=== PATIENT | female | born 1970 | race Hispanic/Latino ===

== ENCOUNTER 2021-09-01 10:30 | Emergency (ER) | payer BC ==
--- OUTSIDE RECORDS SUMMARY | 2021-09-01 10:32 | XMS REPORT | Continuity of Care Document ---
:1970 Author Organization [facility] t Address [address] [place] [address] Care Team Providers Name Role Phone Nima Medina MD Primary Care Physician Hellen STUART Attending Clinician 2, Lab Attending Clinician Unavailable HELLEN Attending Clinician Unavailable ISABEL Attending Clinician Unavailable ISABEL Admitting Clinician Unavailable Payers Payer Name Policy Type Policy Number Effective Date Expiration Date [place] [id number] 2018 00:00:00 Problems Condition Condition Condition Status Onset Resolution Last Treating Co mments Source Name Details Category Date Date Treatment Clinician Date Morbid Morbid Disease Active Univers obesity obesity 3-17 [place] mass index 00 [place] dical of of Branch 40.0-49.9 40.0-49.9 Allergies, Adverse Reactions, Alerts Allergy Allergy Status Severity Reaction(s) Onset Inactive Treating Comm ents Source Name Type Date Date Clinician NO KNOWN Drug Active Univers ALLERGIE Class ity of [facility] Social History Social Habit Start Date Stop Date Quantity Comments Source Exposure to Not sure University of SARS-CoV-2 (event) [facility] History SDOH University o f Alcohol Std Drinks [facility] History SDOH University o f Alcohol Binge [facility] History SDOH University o f Alcohol Comment [place] [facility] Alcohol intake 2021-04-08 2021-04-08 Ex-drinker University 00:00:00 00:00:00 (finding) [facility] Cigarettes smoked 2019-05-27 2019-05-27 Univers ity of current (pack per 00:00:00 00:00:00 [facility]) - Reported Branch Cigarette 2019-05-27 2019-05-27 University of pack-years 00:00:00 00:00:00 [facility] Tobacco use and 2019-05-27 2019-05-27 Never used Universit y of exposure 00:00:00 00:00:00 [facility] History SDOH 2019-05-27 2019-05-27 1 University o f Alcohol Frequency 00:00:00 00:00:00 [facility] History of tobacco 2012-08-14 Smoker Univer sity of use 00:00:00 [facility] Sex Ass[birth year] At [birth year] Universit y of 00:00:00 00:00:00 [facility] Smoking Status Start Date Stop Date Source Former smoker 2019-05-27 00:00:00 2019-05-27 00:00:00 Universi ty of [facility] Medications Ordered Filled Start Stop Current Ordering Indication Dosage Frequency Signature Comments Components Source Medication Medication Date Date Medication? Clinician (SIG) Name Name metroNIDAZO 2020-09 Yes [id number] 500mg Take 1 Univers LE 500 mg 2-19 tablet by ity o f tablet 00:00: mouth 00 every 12 Medical (twelve) Branch hours. fluconazole 2020-09- Yes [id number] 150mg Take 1 Univers (DIFLUCAN) 2-19 12-20 tablet by ity of 150 mg 00:00: 05:59 [place] tablet [place] :00 now for 1 Medical dose. Branch GLIMEPIRIDE 2020-09 Yes [id number] 2mg TAKE 1 Univers 2 mg tablet 2-08 TABLET BY ity of 00:00: MOUTH [place] 00 DAILY WITH Medical BREAKFAST Branch GLIMEPIRIDE 2020-09 Yes [id number] 2mg TAKE 1 Univers 2 mg tablet 2-08 TABLET BY ity of 00:00: MOUTH [place] 00 DAILY WITH Medical BREAKFAST Branch GLIMEPIRIDE 2020-09 Yes [id number] 2mg TAKE 1 Univers 2 mg tablet 2-08 TABLET BY ity of 00:00: MOUTH [place] 00 DAILY WITH Medical BREAKFAST Branch losartan-hy Yes [id number] 1{tbl} Take 1 Univers drochloroth 7-30 tablet by ity of iazide 00:00: mouth [place] 100-25 mg 00 daily. Medical per tablet Branch levothyroxi 2020-0 Yes [id number] 25ug Take 1 Univers ne 25 mcg 7-30 tablet by ity o f tablet 00:00: mouth [place] 00 every Medical morning. Branch atorvastati 2020-0 Yes [id number] 20mg Take 1 Univers n 20 mg 7-30 tablet by ity of tablet 00:00: mouth [place] 00 daily. Medical Branch empaglifloz 2020-0 Yes [id number] 10mg Take 1 Univers in 7-30 tablet by ity of (JARDIANCE) 00:00: mouth [place] 00 daily. Medical Branch losartan-hy 2020-0 Yes [id number] 1{tbl} Take 1 Univers drochloroth 7-30 tablet by ity of iazide 00:00: mouth [place] 100-25 mg 00 daily. Medical per tablet Branch levothyroxi 2020-0 Yes [id number] 25ug Take 1 Univers ne 25 mcg 7-30 tablet by ity o f tablet 00:00: mouth [place] 00 every Medical morning. Branch atorvastati 2020-0 Yes [id number] 20mg Take 1 Univers n 20 mg 7-30 tablet by ity of tablet 00:00: mouth [place] 00 daily. Medical Branch empaglifloz 2020-0 Yes [id number] 10mg Take 1 Univers in 7-30 tablet by ity of (JARDIANCE) 00:00: mouth [place] 00 daily. Medical Branch losartan-hy 2020-0 Yes [id number] 1{tbl} Take 1 Univers drochloroth 7-30 tablet by ity of iazide 00:00: mouth [place] 100-25 mg 00 daily. Medical per tablet Branch levothyroxi 2020-0 Yes [id number] 25ug Take 1 Univers ne 25 mcg 7-30 tablet by ity o f tablet 00:00: mouth [place] 00 every Medical morning. Branch atorvastati 2020-0 Yes [id number] 20mg Take 1 Univers n 20 mg 7-30 tablet by ity of tablet 00:00: mouth [place] 00 daily. Medical Branch empaglifloz 2020-0 Yes [id number] 10mg Take 1 Univers in 7-30 tablet by ity of (JARDIANCE) 00:00: mouth [place] 00 daily. Medical Branch METFORMIN 2020-0 Yes [id number] 500mg TAKE 1 Univers ER 500 mg 4-08 TABLET BY ity o f 24 hr 00:00: MOUTH [place] tablet 00 DAILY WITH Medical BREAKFAST Branch METFORMIN 2020-0 Yes [id number] 500mg TAKE 1 Univers ER 500 mg 4-08 TABLET BY ity o f 24 hr 00:00: MOUTH [place] tablet 00 DAILY WITH Medical BREAKFAST Branch METFORMIN 2020-0 Yes [id number] 500mg TAKE 1 Univers ER 500 mg 4-08 TABLET BY ity o f 24 hr 00:00: MOUTH [place] tablet 00 DAILY WITH [facility] Branch aspirin 81 2018- Yes 81mg Take 81 mg U nivers mg EC 2-23 by mouth ity of tablet 10:18: daily. [address] aspirin 81 2018- Yes 81mg Take 81 mg U nivers mg EC 2-23 by mouth ity of tablet 10:18: daily. [address] aspirin 81 2018- Yes 81mg Take 81 mg U nivers mg EC 2-23 by mouth ity of tablet 10:18: daily. [address] Immunizations Ordered Filled Immunization Date Status Comments [facility] e Immunization Name Name SARS-COV-2 COVID-19 2020-12-21 Completed Unive rsity of MODERNA VACCINE 00:00:00 [facility] SARS-COV-2 COVID-19 2020-12-21 Completed Unive rsity of MODERNA VACCINE 00:00:00 [facility] SARS-COV-2 COVID-19 2020-12-21 Completed Unive rsity of MODERNA VACCINE 00:00:00 [facility] SARS-COV-2 COVID-19 2020-11-23 Completed Unive rsity of MODERNA VACCINE 00:00:00 [facility] SARS-COV-2 COVID-19 2020-11-23 Completed Unive rsity of MODERNA VACCINE 00:00:00 [facility] SARS-COV-2 COVID-19 2020-11-23 Completed Unive rsity of MODERNA VACCINE 00:00:00 [facility] TDAP 2017-01-08 Completed University 00:00:00 [facility] TDAP 2017-01-08 Completed [facility] 00:00:00 [facility] TDAP 2017-01-08 Completed [facility] 00:00:00 [facility] Vital Signs Vital Name Observation Time Observation Value Comments Source Systolic blood 2021-08-25 15:54:00 125 mm[Hg] Univer sity of pressure [facility] Diastolic blood 2021-08-25 15:54:00 82 mm[Hg] Unive rsity of pressure [facility] Heart rate 2021-08-25 15:51:00 68 /min [facility] Body temperature 2021-08-25 15:51:00 36.72 Kari [facility] Respiratory rate 2021-08-25 15:51:00 18 /min [facility] Body height 2021-08-25 15:51:00 157.5 cm [facility] Body weight 2021-08-25 15:51:00 101.606 kg [facility] BMI 2021-08-25 15:51:00 40.97 kg/m2 [facility] Procedures This patient has no known procedures. 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 [facility] [id number] [facility] 10:30:00 10:45:00 Visit Linda Stephens [id number] ity [place] [id number] [place] [facility] [id number] [facility] [address] BU[facility]ING 2021-08-25 2021-08-25 Office Hellen [facility] [id number] Univers 09:45:00 10:16:35 Visit Linda MUKHERJEE [id number] i ty of [place] [id number] [place] n[place]ole PROFJOSSELYNIO [id number] [address] 2021-08-25 2021-08-25 Outpatient Janett STEPHENS [facility] [id number] [facility] 09:45:00 10:16:35 LINDA rae [facility] 2019-02-04 2019-02-04 Outpatient TURNER_FA [facility] [id number] 06:44:00 06:44:00 [address] [facility] Results This patient has no known results.
[2021-09-01] MEDS ORDERED: Ringers Lactate 1,000 ML IV ONE (10:57)
--- NOTE | 2021-09-01 11:36 | EDPHYS ---
Physician Documentation [facility] Name: Mae Ashraf Age: 51 yrs Sex: Female : 1970 Arrival Date: 09/01/2021 Time: 10:35 Bed 6 Private MD: ED Physician Modesto Darling HPI: 09/01 10:55 This 51 yrs old Female presents to ER via Ambulatory with complaints of jr8 Covid+/Dehydrated. 10:55 Onset: The symptoms/episode began/occurred gradually. Associated signs and symptoms: jr8 The patient has no apparent associated signs or symptoms. The patient has not experienced similar symptoms in the past. The patient has not recently seen a physician. Is a 51-year-old female that presented to the emergency room with complaints of dehydration secondary to Covid. Patient stated that overall she has improved since symptom onset this past week but feels that even though she is drinking fluids cannot keep up with it as she is on 2 diuretics and is diabetic.. Historical: - Allergies: 10:53 No Known Allergies; jh5 - PMHx: 10:53 Diabetes mellitus; Hypertensive disorder; [facility] - Immunization history:: Adult Immunizations up to date. - Social history:: Smoking status: Patient denies any tobacco usage or history of. ROS: 10:55 Eyes: Negative for injury, pain, redness, and discharge, ENT: Negative for injury, jr8 pain, and discharge, Neck: Negative for injury, pain, and swelling, Cardiovascular: Negative for chest pain, palpitations, and edema, Respiratory: Negative for shortness of breath, cough, wheezing, and pleuritic chest pain, Abdomen/GI: Negative for abdominal pain, nausea, vomiting, diarrhea, and constipation, Back: Negative for injury and pain, MS/Extremity: Negative for injury and deformity, Skin: Negative for injury, rash, and discoloration, Neuro: Negative for headache, weakness, numbness, tingling, and seizure. 10:55 Constitutional: Positive for fatigue. Exam: 10:55 Constitutional: This is a well developed, well nourished patient who is awake, alert, jr8 and in no acute distress. ENT: Nares patent. No nasal discharge, no septal abnormalities noted. Tympanic membranes are normal and external auditory canals are clear. Oropharynx with no redness, swelling, or masses, exudates, or evidence of obstruction, uvula midline. Mucous membranes moist. Cardiovascular: Regular rate and rhythm with a normal S1 and S2. No gallops, murmurs, or rubs. Normal PMI, no JVD. No pulse deficits. Respiratory: Lungs have equal breath sounds bilaterally, clear to auscultation and percussion. No rales, rhonchi or wheezes noted. No increased work of breathing, no retractions or nasal flaring. Abdomen/GI: Soft, non-tender, with normal bowel sounds. No distension or tympany. No guarding or rebound. No evidence of tenderness throughout. Skin: Warm, dry with decreased turgor. Normal color with no rashes, no lesions, and no evidence of cellulitis. MS/ Extremity: Pulses equal, no cyanosis. Neurovascular intact. Full, normal range of motion. Neuro: Awake and alert, GCS 15, oriented to person, place, time, and situation. Cranial nerves II-XII grossly intact. Motor strength 5/5 in all extremities. Sensory grossly intact. Vital Signs: 10:52 BP 135 / 82; Pulse 71; Resp 20; Temp 97.1; Pulse Ox 99% ; Weight 99.79 kg; Height 5 ft. jh5 3 in. (160.02 cm); 10:52 Body Mass Index 38.97 (99.79 kg, 160.02 cm) [facility] MDM: 10:44 Patient medically screened. [facility] 10:55 Data reviewed: vital signs, nurses notes, and as a result, I will discharge patient. [facility] Data interpreted: Pulse oximetry: on room air is 99 %. Interpretation: normal. Counseling: I had a detailed discussion with the patient and/or guardian regarding: the historical points, exam findings, and any diagnostic results supporting the discharge/admit diagnosis, the need for outpatient follow up, a family practitioner, to return to the emergency department if symptoms worsen or persist or if there are any questions or concerns that arise at home. 09/01 10:55 Order name: IV; Complete Time: 11:02 [facility] Administered Medications: 11:02 Drug: Ringers - Lactated Ringers Solution 1000 ml Route: IV; Rate: bolus; Site: right [facility] antecubital; Disposition: 17:04 Co-signature as Attending Physician, Modesto Darling MD I agree with the assessment and kdr plan of care. Disposition Summary: 09/01/21 11:35 Discharge Ordered Location: Home jr8 Problem: new jr8 Symptoms: have improved jr8 Condition: Stable jr8 Diagnosis - Dehydration jr8 Followup: jr8 - With: Private Physician - When: 2 - 3 days - Reason: Recheck today's complaints, Continuance of care, Re-evaluation by your physician Discharge Instructions: - Discharge Summary Sheet jr8 - Dehydration, Adult jr8 Forms: - Medication Reconciliation Form jr8 - Thank You Letter jr8 - Antibiotic Education jr8 - Prescription Opioid Use jr8 Signatures: Modesto Darling MD MD kdr Roszak, Josh, PA PA jr8 Jennifer Georges RN RN jh5
--- NOTE | 2021-09-01 11:36 | ER ---
Nurse's Notes [facility] Name: Mae Ashraf Age: 51 yrs Sex: Female : 1970 Arrival Date: 09/01/2021 Time: 10:35 Bed 6 Private MD: Diagnosis: Dehydration Presentation: 09/01 10:52 Chief complaint: Patient states: tested COVID+ SUNDAY. Feeling weak, but better than jh5 2 days ago. Endorses nausea and diarrhea. denies vomiting. Coronavirus screen: Vaccine status: Patient reports receiving the 2nd dose of the covid vaccine. Client denies travel out of the [place] in the last 14 days. Client presents with at least one sign or symptom that may indicate coronavirus-19. Standard/surgical mask placed on the client. Provider contacted for isolation considerations. Ebola Screen: Patient negative for fever greater than or equal to 101.5 degrees Fahrenheit, and additional compatible Ebola Virus Disease symptoms Patient denies exposure to infectious person. Patient denies travel to an Ebola-affected area in the 21 days before illness onset. Initial Sepsis Screen: Does the patient meet any 2 criteria? No. Patient's initial sepsis screen is negative. Does the patient have a suspected source of infection? No. Patient's initial sepsis screen is negative. Risk Assessment: Do you want to hurt yourself or someone else? Patient reports no desire to harm self or others. Onset of symptoms was August 29, 2021. 10:52 Method Of Arrival: Ambulatory [facility] 10:52 Acuity: VLADIMIR 4 jh5 Triage Assessment: 10:54 General: Appears in no apparent distress. comfortable, obese, well groomed, well jh5 developed, Behavior is calm, cooperative, appropriate for age. Pain: Denies pain. Respiratory: Reports shortness of breath Onset: The symptoms/episode began/occurred gradually, the patient has mild shortness of breath. Historical: - Allergies: 10:53 No Known Allergies; 5 - PMHx: 10:53 Diabetes mellitus; Hypertensive disorder; [facility] - Immunization history:: Adult Immunizations up to date. - Social history:: Smoking status: Patient denies any tobacco usage or history of. Screenin:54 Abuse screen: Denies threats or abuse. Denies injuries from another. Nutritional [facility] screening: No deficits noted. Tuberculosis screening: No symptoms or risk factors identified. Fall Risk None identified. Assessment: 10:54 Cardiovascular: Rhythm is regular. Respiratory: Airway is patent Respiratory effort is jh5 even, unlabored, Breath sounds are clear. Vital Signs: 10:52 BP 135 / 82; Pulse 71; Resp 20; Temp 97.1; Pulse Ox 99% ; Weight 99.79 kg; Height 5 ft. jh5 3 in. (160.02 cm); 10:52 Body Mass Index 38.97 (99.79 kg, 160.02 cm) [facility] ED Course: 10:35 Patient arrived in ED. mr 10:44 Gilbert Lambert PA is PHCP. [facility] 10:44 Modesto Darling MD is Attending Physician. [facility] 10:45 Jennifer Georges, GUY is Primary Nurse. [facility] 10:53 Triage completed. [facility] 10:55 Arm band placed on right wrist. [facility] 10:55 Patient has correct armband on for positive identification. Bed in low position. Call [facility] light in reach. Side rails up X 1. 11:14 No provider procedures requiring assistance completed. [facility] Administered Medications: 11:02 Drug: Ringers - Lactated Ringers Solution 1000 ml Route: IV; Rate: bolus; Site: right [facility] antecubital; Outcome: 11:35 Discharge ordered by . [facility] 12:04 Patient left the ED. [facility] Signatures: Kelsi Lai mr OrquidealitGilbert PA PA 8 Jennifer Georges, RN RN [facility]
[2021-09-01 12:09] VITALS: BP 135/82; TEMP 97.1; O2SAT 99
== END 2021-09-01 12:04 | disposition home or self-care (01) ==
LOC: ER 10:30
DX: E86.0 Dehydration (principal); Z86.16 Personal history of COVID-19; E11.9 Type 2 diabetes mellitus without complications; I10 Essential (primary) hypertension
CPT/HCPCS: 96374; 99282; J7120

== ENCOUNTER 2022-04-20 00:35 | Emergency (ER) | payer BC ==
--- OUTSIDE RECORDS SUMMARY | 2022-04-20 00:39 | XMS REPORT | Continuity of Care Document ---
:1970 Author Organization [facility] t Address [address] [place] [address] Care Team Providers Name Role Phone Yang Medina MD Primary Care Physician [phone] HETAL Attending Clinician Unavailable Linda Stephens PA-C Attending Clinician Yang Medina MD Attending Clinician YANG MEDINA Attending Clinician Unavailable Pob, [facility] Main Attending Clinician Unavailable LINDA STEPHENS Attending Clinician Unavailable ISABEL Attending Clinician Unavailable HETAL Admitting Clinician Unavailable ISABEL Admitting Clinician Unavailable Payers Payer Name Policy Type Policy Number Effective Date Expiration Date S [place] [id number] 2018 00:00:00 Problems Condition Condition Condition Status [...] Active Univers [employer]ER[employer] Class ity of [facility] [place] [facility] Social History Social Habit Start Date Stop Date Quantity Comments Source History [facility] University o f Alcohol Std Drinks [place] [facility] History [facility] University o f Alcohol [facility]inge [place] [facility] History [facility] University o f Alcohol Comment [facility] ical Branch Exposure to Not sure University of SARS-CoV-2 (event) [facility] Alcohol intake 2021-12-22 2021-12-22 Ex-drinker University of 00:00:00 00:00:00 (finding) [facility] Cigarettes smoked 2019-05-27 2019-05-27 Univers ity of current (pack per 00:00:00 00:00:00 [facility] ) - Reported Branch Cigarette 2019-05-27 2019-05-27 University of pack-years 00:00:00 00:00:[address] [facility] Tobacco use and 2019-05-27 2019-05-27 Smokeless Universit y of exposure 00:00:00 00:00:00 tobacco non-user [facility] dical [place] History SDOH 2019-05-27 2019-05-27 1 University o f Alcohol Frequency 00:00:00 00:00:00 [facility] History of tobacco 2012-08-14 Cigarette Smoker University of use 00:00:[address] [facility] Sex [birth year] At [birth year] Universit y of 00:00:00 00:00:[address] [facility] Smoking Status Start Date Stop Date Source Ex-smoker 2019-05-27 00:00:00 2019-05-27 00:00:00 [facility] Medications Ordered Filled Start Stop Current Ordering Indication Dosage Frequency Signature Comments Components Source Medication Medication Date Date Medication? Clinician (SIG) Name Name valACYclovi Yes [id number] 1g Take 1 Univers r (VALTREX) 7-19 tablet by ity of 1 gram 00:00: mouth in [place] tablet 00 the Medical morning Branch and 1 tablet in the evening. METFORMIN Yes [id number] 500mg TAKE 1 Univers ER 500 mg 6-17 TABLET BY ity o f 24 hr 00:00: MOUTH [place] tablet 00 DAILY WITH Medical BREAKFAST Branch METFORMIN Yes [id number] 500mg TAKE 1 Univers ER 500 mg 6-17 TABLET BY ity o f 24 hr 00:00: MOUTH [place] tablet 00 DAILY WITH Medical BREAKFAST Branch METFORMIN Yes [id number] 500mg TAKE 1 Univers ER 500 mg 6-17 TABLET BY ity o f 24 hr 00:00: MOUTH [place] tablet 00 DAILY WITH Medical BREAKFAST Branch valACYclovi Yes [id number] 1g Take 1 Univers r (VALTREX) 4-14 tablet by ity of 1 gram 00:00: mouth 2 [place] tablet 00 (two) Medical times Branch daily. valACYclovi Yes [id number] 1g Take 1 Univers r (VALTREX) 4-14 tablet by ity of 1 gram 00:00: mouth 2 [place] tablet 00 (two) Medical times Branch daily. valACYclovi Yes [id number] 1g Take 1 Univers r (VALTREX) 4-14 tablet by ity of 1 gram 00:00: mouth 2 [place] tablet 00 (two) Medical times Branch daily. valACYclovi Yes [id number] 1g Take 1 Univers r (VALTREX) 4-14 tablet by ity of 1 gram 00:00: mouth 2 [place] tablet 00 (two) Medical times Branch daily. valACYclovi Yes [id number] 1g Take 1 Univers r (VALTREX) 4-14 tablet by ity of 1 gram 00:00: mouth 2 [place] tablet 00 (two) Medical times Branch daily. valACYclovi 2021- No [id number] 1g Take 1 Univers r (VALTREX) 4-14 07-07 tablet by it y of 1 gram 00:00: 00:00 mouth 2 [place] tablet 00 :00 (two) Medical times Branch daily. valACYclovi 2021- No [id number] 1g Take 1 Univers r (VALTREX) 4-14 07-07 tablet by it y of 1 gram 00:00: 00:00 mouth 2 [place] tablet 00 :00 (two) Medical times Branch daily. metroNIDAZO 0 Yes [id number] 500mg Take 1 Univers LE 500 mg 4-05 tablet by ity o f tablet 00:00: mouth [place] 00 every 12 Medical (twelve) Branch hours. metroNIDAZO 2021-0 Yes [id number] 500mg Take 1 Univers LE 500 mg 4-05 tablet by ity o f tablet 00:00: mouth [place] 00 every 12 Medical (twelve) Branch hours. metroNIDAZO 2021-0 Yes [id number] 500mg Take 1 Univers LE 500 mg 4-05 tablet by ity o f tablet 00:00: mouth [place] 00 every 12 Medical (twelve) Branch hours. metroNIDAZO 2021-0 Yes [id number] 500mg Take 1 Univers LE 500 mg 4-05 tablet by ity o f tablet 00:00: mouth [place] 00 every 12 Medical (twelve) Branch hours. metroNIDAZO 0 Yes [id number] 500mg Take 1 Univers LE 500 mg 4-05 tablet by ity o f tablet 00:00: mouth [place] 00 every 12 Medical (twelve) Branch hours. metroNIDAZO 0 Yes [id number] 500mg Take 1 Univers LE 500 mg 4-05 tablet by ity o f tablet 00:00: mouth [place] 00 every 12 Medical (twelve) Branch hours. metroNIDAZO 0 Yes [id number] 500mg Take 1 Univers LE 500 mg 4-05 tablet by ity o f tablet 00:00: mouth [place] 00 every 12 Medical (twelve) Branch hours. GLIMEPIRIDE 2020-09 Yes [id number] 2mg TAKE 1 Univers 2 mg tablet 2-08 TABLET BY ity of 00:00: MOUTH [place] 00 DAILY WITH Medical BREAKFAST Branch GLIMEPIRIDE 2020-09 Yes [id number] 2mg TAKE 1 Univers 2 mg tablet 2-08 TABLET BY ity of 00:00: MOUTH [place] 00 DAILY WITH Medical BREAKFAST Branch GLIMEPIRIDE 2020-09 Yes [id number] 2mg TAKE 1 Univers 2 mg tablet 2-08 TABLET BY ity of 00:00: MOUTH [place] 00 DAILY WITH Medical BREAKFAST Branch GLIMEPIRIDE 2020-09 Yes [id number] 2mg TAKE 1 Univers 2 mg tablet 2-08 TABLET BY ity of 00:00: MOUTH [place] 00 DAILY WITH Medical BREAKFAST Branch GLIMEPIRIDE 2020- Yes [id number] 2mg TAKE 1 Univers 2 mg tablet 2-08 TABLET BY ity of 00:00: MOUTH [place] 00 DAILY WITH Medical BREAKFAST Branch GLIMEPIRIDE 2020- Yes [id number] 2mg TAKE 1 Univers 2 mg tablet 2-08 TABLET BY ity of 00:00: MOUTH [place] 00 DAILY WITH Medical BREAKFAST Branch GLIMEPIRIDE 2020- Yes [id number] 2mg TAKE 1 Univers 2 mg tablet 2-08 TABLET BY ity of 00:00: MOUTH [place] 00 DAILY WITH Medical BREAKFAST Branch atorvastati 0 Yes [id number] 20mg Take 1 Univers n 20 mg 7-30 tablet by ity of tablet 00:00: mouth [place] 00 daily. Medical Branch empaglifloz 2020-0 Yes [id number] 10mg Take 1 Univers in 7-30 tablet by ity of (JARDIANCE) 00:00: mouth [place] 00 daily. Medical Branch losartan-hy 2020-0 Yes [id number] 1{tbl} Take 1 Univers drochloroth 7-30 tablet by ity of iazide 00:00: mouth [place] 100-25 mg 00 daily. Medical per tablet Branch levothyroxi 2020-0 Yes [id number] 25ug Take 1 Univers ne 25 mcg 7-30 tablet by ity o f tablet 00:00: mouth [place] 00 every Medical morning. Branch atorvastati 0 Yes [id number] 20mg Take 1 Univers n 20 mg 7-30 tablet by ity of tablet 00:00: mouth [place] 00 daily. Medical Branch empaglifloz 0 Yes [id number] 10mg Take 1 Univers in 7-30 tablet by ity of (JARDIANCE) 00:00: mouth [place] 00 daily. Medical Branch losartan-hy 0 Yes [id number] 1{tbl} Take 1 Univers drochloroth 7-30 tablet by ity of iazide 00:00: mouth [place] 100-25 mg 00 daily. Medical per tablet Branch levothyroxi 2020-0 Yes [id number] 25ug Take 1 Univers ne 25 mcg 7-30 tablet by ity o f tablet 00:00: mouth [place] 00 every Medical morning. Branch atorvastati 2020-0 Yes [id number] 20mg Take 1 Univers n 20 mg 7-30 tablet by ity of tablet 00:00: mouth [place] 00 daily. Medical Branch empaglifloz 0 Yes [id number] 10mg Take 1 Univers in 7-30 tablet by ity of (JARDIANCE) 00:00: mouth [place] 00 daily. Medical Branch losartan-hy 2020-0 Yes [id number] 1{tbl} Take 1 Univers drochloroth 7-30 tablet by ity of iazide 00:00: mouth [place] 100-25 mg 00 daily. Medical per tablet Branch levothyroxi 2020-0 Yes [id number] 25ug Take 1 Univers ne 25 mcg 7-30 tablet by ity o f tablet 00:00: mouth [place] 00 every Medical morning. Branch atorvastati 2021-0 Yes [id number] 20mg Take 1 Univers n 20 mg 7-30 tablet by ity of tablet 00:00: mouth [place] 00 daily. Medical Branch empaglifloz 0 Yes [id number] 10mg Take 1 Univers in 7-30 tablet by ity of (JARDIANCE) 00:00: mouth [place] 00 daily. Medical Branch losartan-hy 2020-0 Yes [id number] 1{tbl} Take 1 Univers drochloroth 7-30 tablet by ity of iazide 00:00: mouth [place] 100-25 mg 00 daily. Medical per tablet Branch levothyroxi 2020-0 Yes [id number] 25ug Take 1 Univers ne 25 mcg 7-30 tablet by ity o f tablet 00:00: mouth [place] 00 every Medical morning. Branch atorvastati Yes [id number] 20mg Take 1 Univers n 20 mg 7-30 tablet by ity of tablet 00:00: mouth [place] 00 daily. Medical Branch empaglifloz Yes [id number] 10mg Take 1 Univers in 7-30 tablet by ity of (JARDIANCE) 00:00: mouth [place] 00 daily. Medical Branch losartan-hy Yes [id number] 1{tbl} Take 1 Univers drochloroth 7-30 tablet by ity of iazide 00:00: mouth [place] 100-25 mg 00 daily. Medical per tablet Branch levothyroxi 2020-0 Yes [id number] 25ug Take 1 Univers ne 25 mcg 7-30 tablet by ity o f tablet 00:00: mouth [place] 00 every Medical morning. Branch atorvastati 0 Yes [id number] 20mg Take 1 Univers n 20 mg 7-30 tablet by ity of tablet 00:00: mouth [place] 00 daily. Medical Branch empaglifloz 0 Yes [id number] 10mg Take 1 Univers in 7-30 tablet by ity of (JARDIANCE) 00:00: mouth [place] 00 daily. Medical Branch losartan-hy 2020-0 Yes [id number] 1{tbl} Take 1 Univers drochloroth 7-30 tablet by ity of iazide 00:00: mouth [place] 100-25 mg 00 daily. Medical per tablet Branch levothyroxi 2020-0 Yes [id number] 25ug Take 1 Univers ne 25 mcg 7-30 tablet by ity o f tablet 00:00: mouth [place] 00 every Medical morning. Branch atorvastati Yes [id number] 20mg Take 1 Univers n 20 mg 7-30 tablet by ity of tablet 00:00: mouth [place] 00 daily. Medical Branch empaglifloz Yes [id number] 10mg Take 1 Univers in 7-30 tablet by ity of (JARDIANCE) 00:00: mouth [place] 00 daily. Medical Branch losartan-hy Yes [id number] 1{tbl} Take 1 Univers drochloroth 7-30 tablet by ity of iazide 00:00: mouth [place] 100-25 mg 00 daily. Medical per tablet Branch levothyroxi Yes [id number] 25ug Take 1 Univers ne 25 mcg 7-30 tablet by ity o f tablet 00:00: mouth [place] 00 every Medical morning. Branch METFORMIN Yes [id number] 500mg TAKE 1 Univers ER 500 mg 4-08 TABLET BY ity o f 24 hr 00:00: MOUTH [place] tablet 00 DAILY WITH Medical BREAKFAST Branch METFORMIN Yes [id number] 500mg TAKE 1 Univers ER 500 mg 4-08 TABLET BY ity o f 24 hr 00:00: MOUTH [place] tablet 00 DAILY WITH Medical BREAKFAST Branch METFORMIN Yes [id number] 500mg TAKE 1 Univers ER 500 mg 4-08 TABLET BY ity o f 24 hr 00:00: MOUTH [place] tablet 00 DAILY WITH Medical BREAKFAST Branch METFORMIN 0 Yes [id number] 500mg TAKE 1 Univers ER 500 mg 4-08 TABLET BY ity o f 24 hr 00:00: MOUTH [place] tablet 00 DAILY WITH Medical BREAKFAST Branch METFORMIN 2020-0 2021- No [id number] 500mg TAKE 1 Univers ER 500 mg 4-08 06-17 TABLET BY ity of 24 hr 00:00: 00:00 MOUTH [place] tablet 00 :00 DAILY WITH Medical BREAKFAST Branch aspirin 81 2018-09 Yes 81mg Take 81 mg U nivers mg EC 2-23 by mouth ity of tablet 10:18: daily. [address] aspirin 81 2018-09 Yes 81mg Take 81 mg U nivers mg EC 2-23 by mouth ity of tablet 10:18: daily. [address] aspirin 81 2018-09 Yes 81mg Take 81 mg U nivers mg EC 2-23 by mouth ity of tablet 10:18: daily. [address] aspirin 81 2018- Yes 81mg Take 81 mg U nivers mg EC 2-23 by mouth ity of tablet 10:18: daily. [address] aspirin 81 2019- Yes 81mg Take 81 mg U nivers mg EC 2-23 by mouth ity of tablet 10:18: daily. [address] aspirin 81 2018- Yes 81mg Take 81 mg U nivers mg EC 2-23 by mouth ity of tablet 10:18: daily. [address] aspirin 81 2019- Yes 81mg Take 81 mg U nivers mg EC 2-23 by mouth ity of tablet 10:18: daily. [address] Immunizations Ordered Filled Immunization Date Status Comments [facility] e Immunization Name Name SARS-COV-2 COVID-19 2020-12-21 Completed Unive rsity of MODERNA VACCINE 00:00:00 [facility] SARS-COV-2 COVID-19 2020-12-21 Completed Unive rsity of MODERNA VACCINE 00:00:00 [facility] SARS-COV-2 COVID-19 2020-12-21 Completed Unive rsity of MODERNA VACCINE 00:00:00 [facility] SARS-COV-2 COVID-19 2020-12-21 Completed Unive rsity of MODERNA VACCINE 00:00:00 [facility] SARS-COV-2 COVID-19 2020-12-21 Completed Unive rsity of MODERNA VACCINE 00:00:00 [facility] SARS-COV-2 COVID-19 2020-12-21 Completed Unive rsity of MODERNA VACCINE 00:00:00 [facility] SARS-COV-2 COVID-19 2020-12-21 Completed Unive rsity of MODERNA VACCINE 00:00:00 [facility] SARS-COV-2 COVID-19 2020-11-23 Completed Unive rsity of MODERNA VACCINE 00:00:00 [facility] SARS-COV-2 COVID-19 2020-11-23 Completed Unive rsity of MODERNA VACCINE 00:00:00 [facility] SARS-COV-2 COVID-19 2020-11-23 Completed Unive rsity of MODERNA VACCINE 00:00:00 [facility] SARS-COV-2 COVID-19 2020-11-23 Completed Unive rsity of MODERNA VACCINE 00:00:00 [facility] SARS-COV-2 COVID-19 2020-11-23 Completed Unive rsity of MODERNA VACCINE 00:00:00 [facility] SARS-COV-2 COVID-19 2020-11-23 Completed Unive rsity of MODERNA VACCINE 00:00:00 [facility] SARS-COV-2 COVID-19 2020-11-23 Completed Unive rsity of MODERNA VACCINE 00:00:00 [facility] TDAP 2017-01-08 Completed University of 00:00:[address] [facility] TDAP 2017-01-08 Completed University of 00:00:[address] [facility] TDAP 2017-01-08 Completed University of 00:00:[address] [facility] TDAP 2017-01-08 Completed University of 00:00:[address] [facility] TDAP 2017-01-08 Completed University of 00:00:[address] [facility] TDAP 2017-01-08 Completed University of 00:00:[address] [facility] TDAP 2017-01-08 Completed University of 00:00:[address] [facility] Vital Signs Vital Name Observation Time Observation Value Comments Source Systolic blood 2021-12-22 21:12:00 155 mm[Hg] Univer sity of pressure [facility] Diastolic blood 2021-12-22 21:12:00 92 mm[Hg] Unive rsity of pressure [facility] Heart rate 2021-12-22 21:11:00 86 /min [facility] Body temperature 2021-12-22 21:11:00 37.39 [facility] 2021-12-22 21:11:00 18 /min [facility] Body height 2021-12-22 21:11:00 160 cm [facility] Body weight 2021-12-22 21:11:00 100.426 kg [facility] BMI 2021-12-22 21:11:00 39.22 kg/m2 [facility] Procedures This patient has no known procedures. Encounters Start End Encounter Admission Attending Care Care Encounter Source Date/Time Date/Time Type Type Clinicians Facility Department ID 2022-03-27 2022-03-27 Outpatient AMBREEN_JOE [facility] [id number] 11:54:00 11:54:00 [facility]ER [id number] [facility] [id number] Univers 00:00:00 00:00:00 Linda MUKHERJEE [id number] i ty [facility] [id number] [id number] [address] 2022-03-14 2022-03-14 [facility] [id number] Univers 00:00:00 00:00:00 Linda MUKHERJEE [id number] i ty of [facility] [id number] [id number] [address] 2022-02-24 2022-02-24 [facility] [id number] Univers 00:00:00 00:00:00 Yang OLIVA [id number] it y of [place] MUKHERJEE [id number] [place] DORIS?BLEA [id number] [address] 2022-02-21 2022-02-21 Outpatient Janett MEDINA [facility] [id number]-20 Univers 15:30:00 15:30:00 YANG [id number] ity of [facility] 2021-12-26 2021-12-[address] [facility] [id number] Univers 00:00:00 00:00:00 Linda PORTILLO [id number] it y of [place] [id number] [place] [id number] [address] 2021-12-22 2021-12-22 Travel Sales Consultant Saurabh, Dmitri Lab Main [facility] [id number] Univers 17:00:00 17:15:00 Visit Linda Stephens [id number] ity [facility] [id number] [id number] Nj dical NAL 353 [facility] 2021-12-22 2021-12-22 Office Hellen [facility] [id number] [facility] 16:15:00 16:30:47 Visit Linda MUKHERJEE [id number] i ty [facility] [id number] [id number] Nj dical NAL 134 [facility] 2021-12-22 2021-12-22 Outpatient R HELLEN [facility] [id number] [facility] 16:15:00 16:30:47 LINDA rae [facility] 2019-02-04 2019-02-04 Outpatient TURNER_FA [facility] [id number] [place] 06:44:00 06:44:00 [facility] Results This patient has no known results.
[2022-04-20] MEDS ORDERED: ONDANSETRON 4 MG/2 ML VIAL ONE ×2 (01:08→03:03)
[2022-04-20] MEDS ORDERED: MORPHINE 4 MG/ML SYR ONE ×2 (01:08→03:03)
[2022-04-20 01:30] LABS: Protime INR 1.16
[2022-04-20 01:33] LABS: Hematocrit 43.1 % (36.0-45.0); MCV 82.1 fL (80-100); MPV 7.6 fL (7.6-11.3); RBC Red Blood Cell Count 5.25 M/uL (3.86-4.86)
[2022-04-20 01:48] LABS: Albumin 3.8 g/dL (3.4-5.0); Bilirubin Direct 0.2 mg/dL (0-0.2); Bilirubin Total 0.6 mg/dL (0.2-1.0); Potassium 2.9 mmol/L (3.5-5.1); Protein, Total 9.4 g/dL (6.4-8.2); Troponin High Sensitivity 3.9 pg/mL (<58.9)
[2022-04-20 02:00] LABS: Urine Blood Trace-intact (Negative); Urine Glucose 3+ (Negative); Urine Protein Negative (Negative); Urine Specific Gravity 1.015 (1.005-1.030); Urine pH 7.5 (5.0-7.0)
[2022-04-20] MEDS ORDERED: KCL 20 MEQ/100 mL IVPB 100 ML IV ONE (02:51)
[2022-04-20] MEDS ORDERED: POTASSIUM 25 MEQ EFFERV TAB ONE (02:51)
[2022-04-20] MEDS ORDERED: NS KCL 20MEQ 1,000 ML IV ONE (02:51)
--- NOTE | 2022-04-20 05:45 | EDPHYS ---
Physician Documentation [facility] Name: Mae Ashraf Age: 52 yrs Sex: Female : 1970 Arrival Date: 04/20/2022 Time: 00:37 Bed 7 Private MD: AKILA Physician Mariano Ibarra HPI: 04/20 02:39 This 52 yrs old Female presents to ER via Ambulatory with complaints of yassine Abdominal Pain, Nausea/Vomiting. 02:39 The patient presents to the emergency department with nausea, vomiting, that is yassine intermittent, abdominal pain, of the right upper quadrant, left upper quadrant, right lower quadrant and left lower quadrant. Onset: The symptoms/episode began/occurred 1 week(s) ago. Possible causes: unknown. The symptoms are aggravated by nothing. The symptoms are alleviated by nothing. Associated signs and symptoms: The patient has no apparent associated signs or symptoms. Severity of symptoms: At their worst the symptoms were mild in the emergency department the symptoms are unchanged. The patient has not experienced similar symptoms in the past. 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 - Social history:: Smoking status: Patient denies any tobacco usage or history of. - Family history:: not pertinent. ROS: 02:39 Constitutional: Negative for fever, chills, and weight loss, Eyes: Negative for injury, yassine pain, redness, and discharge, ENT: Negative for injury, pain, and discharge, Neck: Negative for injury, pain, and swelling, Cardiovascular: Negative for chest pain, palpitations, and edema, Respiratory: Negative for shortness of breath, cough, wheezing, and pleuritic chest pain, Back: Negative for injury and pain, : Negative for injury, bleeding, discharge, and swelling, MS/Extremity: Negative for injury and deformity, Skin: Negative for injury, rash, and discoloration, Neuro: Negative for headache, weakness, numbness, tingling, and seizure, Psych: Negative for depression, anxiety, suicide ideation, homicidal ideation, and hallucinations, Allergy/Immunology: Negative for hives, rash, and allergies, Endocrine: Negative for neck swelling, polydipsia, polyuria, polyphagia, and marked weight changes, Hematologic/Lymphatic: Negative for swollen nodes, abnormal bleeding, and unusual bruising. 02:39 Abdomen/GI: Positive for abdominal pain, constipation. Exam: 02:39 Constitutional: This is a well developed, well nourished patient who is awake, alert, yassine and in no acute distress. Head/Face: Normocephalic, atraumatic. Eyes: Pupils equal round and reactive to light, extra-ocular motions intact. Lids and lashes normal. Conjunctiva and sclera are non-icteric and not injected. Cornea within normal limits. Periorbital areas with no swelling, redness, or edema. ENT: Nares patent. No nasal discharge, no septal abnormalities noted. Tympanic membranes are normal and external auditory canals are clear. Oropharynx with no redness, swelling, or masses, exudates, or evidence of obstruction, uvula midline. Mucous membranes moist. Neck: Trachea midline, no thyromegaly or masses palpated, and no cervical lymphadenopathy. Supple, full range of motion without nuchal rigidity, or vertebral point tenderness. No Meningismus. Chest/axilla: Normal chest wall appearance and motion. Nontender with no deformity. No lesions are appreciated. Cardiovascular: Regular rate and rhythm with a normal S1 and S2. No gallops, murmurs, or rubs. Normal PMI, no JVD. No pulse deficits. Respiratory: Lungs have equal breath sounds bilaterally, clear to auscultation and percussion. No rales, rhonchi or wheezes noted. No increased work of breathing, no retractions or nasal flaring. Back: No spinal tenderness. No costovertebral tenderness. Full range of motion. Female : Normal external genitalia. Skin: Warm, dry with normal turgor. Normal color with no rashes, no lesions, and no evidence of cellulitis. MS/ Extremity: Pulses equal, no cyanosis. Neurovascular intact. Full, normal range of motion. Neuro: Awake and alert, GCS 15, oriented to person, place, time, and situation. Cranial nerves II-XII grossly intact. Motor strength 5/5 in all extremities. Sensory grossly intact. Cerebellar exam normal. Normal gait. Psych: Awake, alert, with orientation to person, place and time. Behavior, mood, and affect are within normal limits. 02:39 ECG was reviewed by the Attending Physician. 02:39 Abdomen/GI: Inspection: distension, that is mild, Bowel sounds: normal, Palpation: mild abdominal tenderness, in all quadrants, Liver: no appreciated palpable abnormalities, Hernia: not appreciated. Vital Signs: 00:46 BP 138 / 93; Pulse 87; Resp 18 S; Temp 96.5(TE); Pulse Ox 100% on R/A; Weight 88.45 kg bb (R); Height 5 ft. 3 in. (160.02 cm) (R); Pain 10/10; 06:07 BP 128 / 63; Pulse 78; Resp 18; Pulse Ox 99% on R/A; Pain 6/10; kl 00:46 Body Mass Index 34.54 (88.45 kg, 160.02 cm) bb MDM: 00:57 Patient medically screened. [facility] 02:43 Differential diagnosis: Nonspecific abd pain, gastritis, cholecystitis, pancreatitis, yassine appendicitis, diverticulitis, viral gastroenteritis, gastroenteritis. Data reviewed: vital signs, nurses notes, lab test result(s), EKG, radiologic studies, CT scan. Data interpreted: varnish maker: rate is 87 beats/min, rhythm is regular, Pulse oximetry: on room air is 100 %. Test interpretation: by ED physician or midlevel provider: ECG, plain radiologic studies. Counseling: I had a detailed discussion with the patient and/or guardian regarding: the historical points, exam findings, and any diagnostic results supporting the discharge/admit diagnosis, lab results, radiology results. 04/20 00:56 Order name: Basic Metabolic Panel; Complete Time: 02:11 04/20 00:56 Order name: CBC with Diff; Complete Time: :40 04/20 00:56 Order name: LFT's; Complete Time: 02:04/20 00:56 Order name: Magnesium; Complete Time: 02:04/20 00:56 Order name: NT PRO-BNP; Complete Time: 02:04/20 00:56 Order name: PT-INR; Complete Time: 01:40 04/20 00:56 Order name: Troponin HS; Complete Time: 02:11 /11 00:56 Order name: XRAY Chest (1 view) [facility] 04/20 00:56 Order name: Lipase; Complete Time: 02:11 [facility] 04/20 00:57 Order name: CT Abd/Pelvis - PO and IV Contrast [facility] 04/20 02:01 Order name: Urine Dipstick-Ancillary; Complete Time: 02:11 EDMS 04/20 00:56 Order name: EKG; Complete Time: 00:58 [facility] 04/20 00:56 Order name: Cardiac monitoring; Complete Time: 00:58 [facility] 04/20 00:56 Order name: EKG - Nurse/Tech; Complete Time: 01:56 [facility] 04/20 00:56 Order name: IV Saline Lock; Complete Time: 00:58 [facility] 04/20 00:56 Order name: Labs collected and sent; Complete Time: 00:58 [facility] 04/20 00:56 Order name: O2 Per Protocol; Complete Time: 00:58 [facility] 04/20 00:56 Order name: O2 Sat Monitoring; Complete Time: 00:58 [facility] 04/20 00:56 Order name: Urine Dipstick-Ancillary (obtain specimen); Complete Time: 01:55 [facility] EC:39 Rate is 89 beats/min. Rhythm is regular. QRS [place] is Normal. ND interval is normal. QRS yassine interval is normal. QT interval is normal. No Q waves. T waves are Normal. No ST changes noted. Clinical impression: Normal ECG and No evidence of ischemia. Administered Medications: 01:06 Drug: Zofran (Ondansetron) 4 mg Route: IVP; Site: right antecubital; kd3 01:07 Drug: NS 0.9% 1000 ml Route: IV; Rate: 1 bolus; Site: right antecubital; kd3 01:07 Drug: morphine 4 mg Route: IVP; Infused Over: 4 mins; Site: right antecubital; kd3 02:57 Drug: Potassium Chloride 20 mEq Route: IV; Rate: per protocol; Site: right antecubital; bb 02:57 Drug: Potassium Effervescent Tablet 50 mEq Route: PO; bb 02:57 Drug: NS 0.9% with KCl 20 mEq/L 1000 ml Route: IV; Rate: 250 ml/hr; Site: right bb antecubital; 06:04 Follow up: IV Status: Order to discontinue infusion; IV Intake: 700ml kl 05:49 Not Given (Duplicate Order): Potassium Effervescent Tablet 25 mEq PO once; dissolve in bb 4 ounces of water or juice 06:04 Drug: Lactulose 60 grams Volume: 45 ml; Route: PO; kl 06:04 Drug: Dulcolax (bisacodyl) Suppository 10 mg Route: ND; Disposition Summary: 04/20/22 05:44 Discharge Ordered Location: Home [facility] Problem: new yassine Symptoms: have improved yassine Condition: Stable yassine Diagnosis - Vomiting yassine - Constipation yassine - Hypokalemia yassine - Abdominal pain, Generalized yassine Followup: yassine - With: Private Physician - When: 2 - 3 days - Reason: Recheck today's complaints, Continuance of care, Re-evaluation by your physician Discharge Instructions: - Discharge Summary Sheet yassine - Abdominal Pain, Adult yassine - Potassium Content of Foods yassine - Abdominal Pain, Adult, [id number] yassine - Hypokalemia yassine - Vomiting, Adult yassine Forms: - Medication Reconciliation Form [facility] - Thank You Letter [facility] - Antibiotic Education [facility] - Prescription Opioid Use [facility] Prescriptions: - Dulcolax (bisacodyl) 10 mg Rectal suppository - insert 1 suppository by RECTAL route every 12 hours; 14 suppository; Refills: [facility] 0, Product Selection Permitted - Pepcid 20 mg Oral Tablet - take 1 tablet by ORAL route every 12 hours for 10 days; 20 tablet; Refills: 0, [facility] Product Selection Permitted - Zofran 4 mg Oral Tablet - take 1 tablet by ORAL route every 12 hours As needed; 20 tablet; Refills: 0, [facility] Product Selection Permitted - Lactulose 10 gram/15 mL Oral Solution - take 30 milliliters by ORAL route once daily; 300 milliliter; Refills: 0, [facility] Product Selection Permitted - dicyclomine 20 mg Oral Tablet - take 1 tablet by ORAL route 4 times per day; 28 tablet; Refills: 0, Product [facility] Selection Permitted Signatures: Dispatcher [employer] Radha Shaffer RN RN kl Anderson, Corey, MD MD cha Ballard, Brenda, RN RN Darya Leonardo RN RN kd3 Maricarmen Shi PA PA sb3 Corrections: (The following items were deleted from the chart) 00:49 00:47 PMHx: diabetes mellitus; bb bb 00:49 00:47 PMHx: Hypertensive disorder; 01:30 00:58 Abdomen Pelvis W Con+CT.RAD.BRZ ordered. EDMS EDMS
--- NOTE | 2022-04-20 05:45 | ER ---
Nurse's Notes [facility] Name: Mae Ashraf Age: 52 yrs Sex: Female : 1970 Arrival Date: 04/20/2022 Time: 00:37 Bed 7 Private MD: Diagnosis: Vomiting;Constipation;Hypokalemia;Abdominal pain, Generalized Presentation: 04/20 00:46 Chief complaint: Patient states: she has had abdominal pain for 2 days no BM x 1 week bb and started vomiting tonight. Coronavirus screen: At this time, the client does not indicate any symptoms associated with coronavirus-19. Ebola Screen: No symptoms or risks identified at this time. Initial Sepsis Screen: Does the patient meet any 2 criteria? No. Patient's initial sepsis screen is negative. Does the patient have a suspected source of infection? No. Patient's initial sepsis screen is negative. Risk Assessment: Do you want to hurt yourself or someone else? Patient reports no desire to harm self or others. Onset of symptoms was April 19, 2022. 00:46 Method Of Arrival: Ambulatory bb 00:46 Acuity: VLADIMIR 3 bb 00:59 Note Pt report taking phenteramine and has lost 27 pounds since February. 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 - Social history:: Smoking status: Patient denies any tobacco usage or history of. - Family history:: not pertinent. Screenin:00 Abuse screen: Denies threats or abuse. Nutritional screening: No deficits noted. Tuberculosis screening: No symptoms or risk factors identified. Fall Risk None identified. Assessment: 00:57 General: Appears uncomfortable, well groomed, well developed, Behavior is calm, kl cooperative. Pain: Complains of pain in right upper quadrant and left upper quadrant Pain currently is 10 out of 10 on a pain scale. Quality of pain is described as aching, crampy, Noted to be grimacing, guarding. Neuro: No deficits noted. Scanlon Agitation-Sedation Scale (RASS): 0 - Alert and Calm. Cardiovascular: No deficits noted. Respiratory: No deficits noted. Airway is patent Trachea midline Respiratory effort is even, unlabored. GI: Bowel sounds hypoactive in right lower quadrant and left lower quadrant. GI: Abdomen is tender to palpation X 4 quads. Reports vomiting, x 2 30 minutes VP DELIVERY. : No deficits noted. No signs and/or symptoms were reported regarding the genitourinary system. EENT: No deficits noted. No signs and/or symptoms were reported regarding the EENT system. Derm: No deficits noted. No signs and/or symptoms reported regarding the dermatologic system. Musculoskeletal: No deficits noted. No signs and/or symptoms reported regarding the musculoskeletal system. Vital Signs: 00:46 BP 138 / 93; Pulse 87; Resp 18 S; Temp 96.5(TE); Pulse Ox 100% on R/A; Weight 88.45 kg bb (R); Height 5 ft. 3 in. (160.02 cm) (R); Pain 10/10; 06:07 BP 128 / 63; Pulse 78; Resp 18; Pulse Ox 99% on R/A; Pain 6/10; kl 00:46 Body Mass Index 34.54 (88.45 kg, 160.02 cm) bb ED Course: 00:37 Patient arrived in ED. bp1 00:47 Triage completed. bb 00:47 Arm band placed on Patient placed in an exam room, on a stretcher, on pulse oximetry. bb 00:50 Darya Nielsen RN is Primary Nurse. kd3 00:53 Mariano Ibarra MD is Attending Physician. yassine 01:00 Inserted saline lock: 20 gauge in right antecubital area, using aseptic technique. kl 01:38 XRAY Chest (1 view) In Process Unspecified. EDMS 01:48 Notified ED physician of a critical lab result(s). potassium of 2.9 Dr Fred arriaga notified. 04:11 CT Abd/Pelvis - PO and IV Contrast In Process Unspecified. EDMS 05:30 No apparent distress. Resting quietly. kl 06:06 IV discontinued, intact, bleeding controlled, No redness/swelling at site. Pressure kl dressing applied. 06:08 Patient has correct armband on for positive identification. kl 06:08 No provider procedures requiring assistance completed. kl Administered Medications: 01:06 Drug: Zofran (Ondansetron) 4 mg Route: IVP; Site: right antecubital; kd3 01:07 Drug: NS 0.9% 1000 ml Route: IV; Rate: 1 bolus; Site: right antecubital; kd3 01:07 Drug: morphine 4 mg Route: IVP; Infused Over: 4 mins; Site: right antecubital; kd3 02:57 Drug: Potassium Chloride 20 mEq Route: IV; Rate: per protocol; Site: right antecubital; bb 02:57 Drug: Potassium Effervescent Tablet 50 mEq Route: PO; bb 02:57 Drug: NS 0.9% with KCl 20 mEq/L 1000 ml Route: IV; Rate: 250 ml/hr; Site: right bb antecubital; 06:04 Follow up: IV Status: Order to discontinue infusion; IV Intake: 700ml kl 05:49 Not Given (Duplicate Order): Potassium Effervescent Tablet 25 mEq PO once; dissolve in bb 4 ounces of water or juice 06:04 Drug: Lactulose 60 grams Volume: 45 ml; Route: PO; kl 06:04 Drug: Dulcolax (bisacodyl) Suppository 10 mg Route: ME; Medication: 06:08 VIS not applicable for this client. kl Intake: 06:04 IV: 700ml; Total: 700ml. Outcome: 05:44 Discharge ordered by . yassine 06:07 Discharged to home ambulatory. 06:07 Condition: stable 06:07 Discharge instructions given to patient, Instructed on discharge instructions, follow up and referral plans. medication usage, Demonstrated understanding of instructions, follow-up care, medications, Prescriptions given X 4. 06:08 Patient left the ED. Signatures: Dispatcher [employer] EDMS Radha Moulton RN RN kl Anderson, Corey, MD MD cha Ballard, Brenda RN RN Nimo Rodriguez Kyli, RN RN kd3 Corrections: (The following items were deleted from the chart) 00:49 00:47 PMHx: diabetes mellitus; corina arriaga 00:49 00:47 PMHx: Hypertensive disorder; corina arriaga
[2022-04-20] MEDS ORDERED: LACTULOSE 20 GM/30 ML UCUP ONE (06:01)
[2022-04-20] MEDS ORDERED: BISACODYL 10 MG RECTAL SUPP ONE (06:01)
[2022-04-20 06:20] VITALS: TEMP 96.5
[2022-04-20 06:23] VITALS: BP 128/63; O2SAT 99
--- NOTE | 2022-04-20 14:31 | EKG ---
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
--- NOTE | 2022-04-20 17:05 | RAD REPORT ---
EXAM DESCRIPTION: RAD - Chest Single View - 04/20/2022 1:36 am CLINICAL HISTORY: The patient is 52 years old and is Female; ABDOMINAL DISTENTION TECHNIQUE: Frontal view of the chest. COMPARISON: No relevant prior studies available. FINDINGS: Lungs: Unremarkable. No consolidation. Pleural space: Unremarkable. No pneumothorax. Heart: Unremarkable. Mediastinum: Unremarkable. Bones/joints: Unremarkable. IMPRESSION: No acute findings in the chest. Electronically signed by: Frankie Martinez MD 04/20/2022 1:50 AM CDT Due to temporary technical issues with the PACS/Fluency reporting system, reports are being signed by the in house radiologists without review as a courtesy to insure prompt reporting. The interpreting radiologist is fully responsible for the content of the report.
--- NOTE | 2022-04-20 17:14 | RAD REPORT ---
EXAM DESCRIPTION: CT - Abdomen Pelvis W Contrast - 04/20/2022 5:51 am CLINICAL HISTORY: The patient is 52 years old and is Female; Abdominal pain, acute, nonlocalized TECHNIQUE: Axial computed tomography images of the abdomen and pelvis with intravenous contrast. S agittal and coronal reformatted images were created and reviewed. This CT exam was performed using one or more of the following dose reduction techniques: automated exposure control, adjustment of t he mA and/or kV according to patient size, and/or use of iterative reconstruction technique. Oral c ontrast was administered. COMPARISON: No relevant prior studies available. FINDINGS: Lung bases: Unremarkable. No mass. No consolidation. ABDOMEN: Liver: Unremarkable. No mass. Gallbladder and bile ducts: Cholecystectomy without biliary dilatation. Pancreas: No findings to suggest acute pancreatitis. No mass visualized. No ductal dilation. Spleen: Unremarkable. No splenomegaly. Adrenals: Unremarkable. No mass. Kidneys and ureters: Unremarkable. No solid mass. No hydronephrosis. Stomach and bowel: Moderate rectosigmoid stool with mildly distended right and transverse colon, with air-fluid level. No findings to suggest colitis. No small bowel dilatation or bowel wall thickening. No gastric wall thickening. PELVIS: Appendix: The visualized appendix is normal. No pericecal inflammation to suggest acute appendici tis. Bladder: Unremarkable. No mass. Reproductive: Retroflexed uterus. Fluid in the vaginal fornices. No adnexal mass. ABDOMEN and PELVIS: Intraperitoneal space: Unremarkable. No free air. No significant fluid collection. Bones/joints: L4-5 degenerative facet arthropathy. No acute fracture. No dislocation. Soft tissues: Unremarkable. Vasculature: Unremarkable. No abdominal aortic aneurysm. Lymph nodes: No pathologically enlarged lymph nodes. IMPRESSION: Moderate rectosigmoid stool with mildly distended right and transverse colon, with air-f luid level. No findings to suggest colitis. Electronically signed by: Collette Boateng MD 04/20/2022 4:29 AM CDT Due to temporary technical issues with the PACS/Fluency reporting system, reports are being signed by the in house radiologists without review as a courtesy to insure prompt reporting. The interpreting radiologist is fully responsible for the content of the report.
== END 2022-04-20 06:08 | disposition home or self-care (01) ==
LOC: ER 00:35
DX: E87.6 Hypokalemia (principal); R10.84 Generalized abdominal pain; K59.00 Constipation, unspecified
CPT/HCPCS: 96361; 93005; 85025; 80048; 36415; 83735; 85610; 80076; 81003; 84484; 83690; 83880; 74177; 71045; 96375; 96374; 99284; Q9967; J3480 ×2; J2405 ×2

== ENCOUNTER 2024-02-21 07:38 | Observation (INO) | payer BC ==
[2024-02-15 11:29] LABS: Absolute Basophils 0.1 K/uL (0-0.5); Absolute Eosinophils 0.1 K/uL (0-0.5); Absolute Lymphocytes (CBC) 1.9 K/uL (0.7-4.9); Absolute Monocytes 0.4 K/uL (0.1-1.3); Absolute Neutrophil 3.4 K/uL (1.8-8.0); Basophils % 0.9 % (0-1.3); Hematocrit 42.7 % (36.0-45.0); Hemoglobin 14.1 g/dL (12.0-15.0); Lymphocytes % 32.2 % (15.3-44.8); MCH 28.9 pg (27.0-35.0); MCHC 32.9 g/dL (32.0-36.0); MCV 87.8 fL (80-100); MPV 8.1 fL (7.6-11.3); Monocytes % 6.4 % (3.3-12.3); Neutrophils % 58.5 % (41.7-73.7); Platelets 257 thou/uL (152-406); RBC Red Blood Cell Count 4.87 M/uL (3.86-4.86)
[2024-02-15 11:34] LABS: Specific Gravity 1.017 (1.005-1.030); Urine Bilirubin NEGATIVE (Negative); Urine Blood Negative (Negative); Urine Clarity Clear (Clear); Urine Color Colorless (Yellow); Urine Glucose NEGATIVE (Negative); Urine Ketones NEGATIVE (Negative); Urine Microscopic Reflex YN NO UMIC; Urine Nitrite NEGATIVE (Negative); Urine Protein NEGATIVE (Negative); Urine Urobilinogen Normal (Normal); Urine pH 6.5 (5.0-7.0)
[2024-02-15 11:35] LABS: PT Prothrombin Time 10.7 SECONDS (9.5-12.5); PTT, Activated Partial Thromb 37.6 SECONDS (24.3-36.9); Protime INR 0.97
[2024-02-15 11:43] LABS: Anion Gap 5.9 mEq/L (5.0-15.0); Potassium 3.9 mEq/L (3.5-5.1)
--- NOTE | 2024-02-16 11:42 | EKG ---
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
[2024-02-21] MEDS: SCOPOLAMINE HYDROBROMIDE PATCH TD ONE (08:21)
[2024-02-21] MEDS: Ringers Lactate 1,000 ML IV ONE ×2 (08:30→11:10)
[2024-02-21] MEDS ORDERED: FENTANYL CITR 100 MCG/2 ML ONE (10:05)
[2024-02-21] MEDS ORDERED: KETOROLAC 30 MG/ML INJ ONE (10:05)
[2024-02-21] MEDS ORDERED: dexAMETHasone 10 MG/ML VIAL ONE (10:05)
[2024-02-21] MEDS ORDERED: LIDOCAINE 2% MPF 5 ML VIAL ONE (10:05)
[2024-02-21] MEDS ORDERED: ROCURONIUM 50 MG/5 ML VIAL IV ONE (10:05)
[2024-02-21] MEDS ORDERED: ONDANSETRON 4 MG/2 ML VIAL ONE (10:05)
[2024-02-21] MEDS ORDERED: MIDAZOLAM HCL 2 MG/2 ML INJ ONE (10:05)
[2024-02-21] MEDS ORDERED: propofoL 200 MG/20 ML VIAL IV ONE (10:05)
[2024-02-21] MEDS ORDERED: LANO/MINERAL OIL/PETRO 3.5 GM ONE (10:11)
[2024-02-21] MEDS: CEFAZOLIN SODIUM 2 GM/VIAL ONE (10:23)
[2024-02-21] MEDS: BUPIVACAINE 0.25% PF 30 ML VIAL ONE (10:35)
[2024-02-21] MEDS: LIDOCAINE HCL/EPINEPHRINE 20 ML MDV ONE (11:18)
[2024-02-21] MEDS ORDERED: VECURONIUM 10 MG/VIAL IV ONE (11:19)
[2024-02-21] MEDS ORDERED: NS 0.9% VIAL 10 ML ONE (11:20)
[2024-02-21] MEDS ORDERED: GLYCOPYRROLATE 0.2 MG/ML SYR ONE (11:27)
[2024-02-21] MEDS ORDERED: LIDOCAINE HCL/EPINEPHRINE 20 ML MDV ONE (13:08)
[2024-02-21] MEDS ORDERED: HYDROMORPHONE HCL 1 MG/ML INJ ONE (13:56)
[2024-02-21] MEDS ORDERED: Mastisol Adhesive Liq ONE (14:13)
[2024-02-21] MEDS ORDERED: MORPHINE 2 MG/ML SYR IV PRN (14:23)
[2024-02-21] MEDS ORDERED: ONDANSETRON 4 MG/2 ML VIAL IV PRN (14:23)
[2024-02-21] MEDS ORDERED: PROMETHAZINE INJ 25 MG/ML AMP IV PRN (14:23)
--- NOTE | 2024-02-21 14:29 | P.BOP ---
Preoperative diagnosis: pelvic floor prolapse, SWAPNIL, AUB Postoperative diagnosis: same, enterocele, perineocele Primary procedure: TLH BSO, USLS colpopexy, modified ya's culdoplasty, cysto Secondary procedure: post wall, perineocele repairs, TVT-O cysto Concrete Sculptor: Yvonne Marquez Estimated blood loss: 100 Specimen: uterus and bilateral tubes and ovaries Findings: post wall/perineocele significant,0/0/+1/6/thin/9/0/+1/-4,cysto patent UOs Anesthesia: General Complications: None Drain(s): Urinary catheter Implants: TVT-O Transferred to: Recovery Room Condition: Good
[2024-02-21] MEDS: HYDROMORPHONE HCL 1 MG/ML INJ ONE ×2 (15:00→15:20)
--- OUTSIDE RECORDS SUMMARY | 2024-02-21 15:20 | XMS REPORT | Continuity of Care Document ---
Author Name Unknown Address [address] [facility] [address] [place] [address] [facility] thconnect Address [address] [facility] [address] [place] [address] Care Team Providers Care Foreign Language Professor Name Role Phone YANG SWEENEY Primary Care Physician Jordyn vailaJASSI Torres Attending Clinician Unavailable DEANN DUMAS Attending Clinician UnavailDeann Valentine MD Attending Clinician [phone] Lab, [facility] Attending Clinician Unavailable GC_GCBZW_Kaeliasa_S Attending Clinician UnavailMARIE Kohler Attending Clinician Unavailable Yang Sweeney MD Attending Clinician [phone]- [phone] HETAL Attending Clinician Unavailable Linda Stephens PA-C Attending Clinician [phone] Pob, [facility] Main Attending Clinician UnavailLINDA Johnson Attending Clinician Unavailable COLTON LOWERY Attending Clinician Unavailable 2, [facility] Attending Clinician Unavailable Nurse, [facility] Attending Clinician Un available YANG SWEENEY Attending Clinician David garcia Pcp, Patient Does Not Have A Attending Clinician Bakari Garcia MD Attending Clinician [phone] BAKARI GARCIA Attending Clinician Unavailable Doctor Unassigned, [place] Attending Clinician Rickie Singh DO Attending Clinician [phone] ISABEL Attending Clinician Unavailable DEANN DUMAS Admitting Clinician Unavailjose juan barahona GC_GCBZW_Kadiemir_S Admitting Clinician Unavaila ble HUYENREEN_FARHANA Admitting Clinician Unavailable TURNER_FA Admitting Clinician Unavailable Payers Payer Name Policy Type Policy Number Effective Date Expirati on Date Source [employer] [facility] [place] [id number] 2018 00:00:[place] [id number] 2018 00:00:[place] [id number] 2018 00:00:00 Problems Condition Name Condition Details Condition Category Status Onset Date Resolution Date Last Treatment Date Treating Clinician Comments Source Incomplete uterovagin al prolapse Incomplete Uterovagin al Prolapse Problem Active 01-01 00:00: 00 [facility] Atrophy of skeletal muscle of pelvis Atrophy of Skeletal Muscle of Pelvis Problem Active 01-01 00:00: 00 [facility] Female stress incontinen ce Female Stress Incontinen ce Problem Active 01-01 00:00: 00 [facility] Atrophic vaginitis Atrophic Vaginitis Problem Active 01-01 00:00: 00 [facility] Urge incontinen ce of urine Urge Incontinen ce of Urine Problem Active 01-01 00:00: 00 [facility] Hypothyroi dism Hypothyroi dism Problem Active 01-01 00:00: 00 [facility] Diabetes mellitus Diabetes Mellitus Problem Active 01-01 00:00: 00 [facility] Deep pain on intercours e Deep Pain on Intercours e Problem Active 01-01 00:00: 00 [facility] Hypertensi ve disorder Hypertensi ve Disorder Problem Active 01-01 00:00: 00 [facility] Morbid obesity with body mass index of 40.0-49.9 Morbid obesity with body mass index of 40.0-49.9 Disease Active 3-17 00:00: 00 [facility] acute hospital Allergies, Adverse Reactions, Alerts Allergy Name Allergy Type Status Severity Reaction(s) Onset Date Inactive Date Treating Clinician Comments Source NO KNOWN ALLERGIE S Drug Class Active General acute hospital Social History Social Habit Start Date Stop Date Quantity Comments Source [facility] History SDOH Alcohol Std Drinks [facility] History SDOH Alcohol Binge [facility] History SDOH Alcohol Comment [facility] Cigarettes smoked current (pack per day) - Reported 2024-01-01 00:00:00 2024-01-01 00:00:00 [facility] Cigarette pack-years 2024-01-01 00:00:00 2024-01-01 00:00:00 [facility] Tobacco use and exposure 2024-01-01 00:00:00 2024-01-01 00:00:00 Smokeless tobacco non-user [facility] Alcohol intake 2024-01-01 00:00:00 2024-01-01 00:00:00 Ex-drinker (finding) [facility] Exposure to SARS-CoV-2 (event) 2021-11-21 00:00:00 2021-12-21 13:01:00 Not sure [facility] History of Social function 2020-04-11 00:00:00 2020-04-11 00:00:00 [facility] History SDOH Alcohol Frequency 2019-05-27 00:00:00 2019-05-27 00:00:00 1 [facility] History of tobacco use 2012-08-14 00:00:00 Cigarette Smoker [facility] Sex Assigned At 1970 00:00:00 1970 00:00:00 [facility] Smoking Status Start Date Stop Date Source Never Smoker [facility] Ex-smoker 2024-01-01 00:00:00 2024-01-01 [facility] Ordered Medication Name Filled Medication Name Start Date Stop Date Current Medication? Ordering Clinician Indication Dosage Frequency Signature (SIG) Comments Components Source iopamidol (ISOVUE 370-500 mL) injection 80 mL 01-01 20:00: 00 01-01 18:00 :00 No [id number] 80mL 80 mL, Intravenou s, ONCE, 1 dose, On Sun01/02/24 at 1515, Routine [facility] diatrizoate carina-diatriz oat sod (GASTROGRAF IN) 66-10 % oral solution 30 mL 01-01 18:30: 00 01-01 18:30 :00 No [id number] 30mL 30 mL, Oral, ONCE, 1 dose, On Sun01/02/24 at 1330, Routine [facility] acute hospital terbinafine HCL 1 % cream 12-31 00:00: 00 Yes [id number] Apply to area(s) 2 (two) times daily. [facility] acute hospital valACYclovi r (VALTREX) 1 gram tablet 03-28 00:00: 00 Yes [id number] 1g Take 1 tablet by mouth in the morning and 1 tablet in the evening. [facility] acute hospital METFORMIN ER 500 mg 24 hr tablet 02-24 00:00: 00 Yes [id number] 500mg TAKE 1 TABLET BY MOUTH DAILY WITH BREAKFAST General acute hospital valACYclovi r (VALTREX) 1 gram tablet 14 00:00: 00 03-16 00:00 :00 No [id number] 1g Take 1 tablet by mouth 2 (two) times daily. [facility] acute hospital metroNIDAZO LE 500 mg tablet 12-13 00:00: 00 Yes [id number] 500mg Take 1 tablet by mouth every 12 (twelve) hours. [facility] acute hospital GLIMEPIRIDE 2 mg tablet 2020-09 00:00: 00 Yes [id number] 2mg TAKE 1 TABLET BY MOUTH DAILY WITH BREAKFAST General acute hospital atorvastati n 20 mg tablet 04-08 00:00: 00 Yes [id number] 20mg Take 1 tablet by mouth daily. [facility] acute hospital empaglifloz in (JARDIANCE) 04-08 00:00: 00 Yes [id number] 10mg Take 1 tablet by mouth daily. [facility] acute hospital losartan-hy drochloroth iazide 100-25 mg per tablet 04-08 00:00: 00 Yes [id number] 1{tbl} Take 1 tablet by mouth daily. [facility] acute hospital levothyroxi ne 25 mcg tablet 04-08 00:00: 00 Yes [id number] 25ug Take 1 tablet by mouth every morning. [facility] acute hospital metroNIDAZO LE (FLAGYL) 500 mg tablet 03-09 00:00: 00 03-18 00:00 :00 No Take 4 tablets by mouth for 1 dose. [facility] acute hospital LOSARTAN 100 mg tablet 03-08 00:00: 00 04-08 00:00 :00 No [id number] 100mg TAKE 1 TABLET BY MOUTH DAILY [facility] acute hospital benzonatate 200 mg capsule 03-07 00:00: 00 04-08 00:00 :00 No [id number] 200mg Take 1 capsule by mouth 3 (three) times daily as needed for Cough. General acute hospital azithromyci n 500 mg tablet 03-07 00:00: 00 03-18 00:00 :00 No [id number] 500mg Take 1 tablet by mouth daily. General acute hospital METFORMIN ER 500 mg 24 hr tablet 12-16 00:00: 00 02-24 00:00 :00 No [id number] 500mg TAKE 1 TABLET BY MOUTH DAILY WITH BREAKFAST General acute hospital GLIMEPIRIDE 2 mg tablet 3 00:00: 00 08-17 00:00 :00 No [id number] 2mg TAKE 1 TABLET BY MOUTH DAILY WITH BREAKFAST General acute hospital ATORVASTATI N 20 mg tablet 2019-09 00:00: 00 04-08 00:00 :00 No [id number] 20mg TAKE 1 TABLET BY MOUTH DAILY [facility] acute hospital LEVOTHYROXI NE 25 mcg tablet 2019-09 014 00:00: 00 04-08 00:00 :00 No [id number] TAKE 1 TABLET EVERY MORNING [facility] acute hospital aspirin 81 mg EC tablet 2018-09 2 10:18: 51 Yes 81mg Take 81 mg by mouth daily. [facility] acute hospital levothyroxi ne levothyroxi ne No levothyrox ine [facility] losartan 50 mg tablet Take 1 tablet every day by oral route. losartan 50 mg tablet Take 1 tablet every day by oral route. No 1 Q1D losartan 50 mg tablet Take 1 tablet every day by oral route. [facility] tramadol 50 mg tablet Take 1 tablet every 6 hours by oral route as needed for 4 days. tramadol 50 mg tablet Take 1 tablet every 6 hours by oral route as needed for 4 days. No 1 Q6H tramadol 50 mg tablet Take 1 tablet every 6 hours by oral route as needed for 4 days. [facility] Immunizations Ordered Immunization Name Filled Immunization Name Date Status Comments Source SARS-COV-2 COVID-19 MODERNA VACCINE 2020-12-21 00:00:00 Completed [facility] SARS-COV-2 COVID-19 MODERNA VACCINE 2020-12-21 00:00:00 Completed [facility] SARS-COV-2 COVID-19 MODERNA VACCINE 2020-12-21 00:00:00 Completed [facility] SARS-COV-2 COVID-19 MODERNA VACCINE 2020-12-21 00:00:00 Completed [facility] SARS-COV-2 COVID-19 MODERNA 12+ YRS VACCINE 2020-12-21 00:00:00 Completed [facility] SARS-COV-2 COVID-19 MODERNA VACCINE 2020-12-21 00:00:00 Completed [facility] SARS-COV-2 COVID-19 MODERNA VACCINE 2020-12-21 00:00:00 Completed [facility] SARS-COV-2 COVID-19 MODERNA VACCINE 2020-12-21 00:00:00 Completed [facility] SARS-COV-2 COVID-19 MODERNA VACCINE 2020-11-23 00:00:00 Completed [facility] SARS-COV-2 COVID-19 MODERNA VACCINE 2020-11-23 00:00:00 Completed [facility] SARS-COV-2 COVID-19 MODERNA VACCINE 2020-11-23 00:00:00 Completed [facility] SARS-COV-2 COVID-19 MODERNA VACCINE 2020-11-23 00:00:00 Completed [facility] SARS-COV-2 COVID-19 MODERNA 12+ YRS VACCINE 2020-11-23 00:00:00 Completed [facility] SARS-COV-2 COVID-19 MODERNA VACCINE 2020-11-23 00:00:00 Completed [facility] SARS-COV-2 COVID-19 MODERNA VACCINE 2020-11-23 00:00:00 Completed [facility] SARS-COV-2 COVID-19 MODERNA VACCINE 2020-11-23 00:00:00 Completed [facility] TDAP 2017-01-08 00:00:00 Completed [facility] TDAP 2017-01-08 00:00:00 Completed [facility] TDAP 2017-01-08 00:00:00 Completed [facility] TDAP 2017-01-08 00:00:00 Completed [facility] TDAP 2017-01-08 00:00:00 Completed [facility] TDAP 2017-01-08 00:00:00 Completed [facility] TDAP 2017-01-08 00:00:00 Completed [facility] TDAP 2017-01-08 00:00:00 Completed [facility] SARS-COV-2 COVID-19 MODERNA 12+ YRS VACCINE Unknown Completed [facility] SARS-COV-2 COVID-19 MODERNA 12+ YRS VACCINE Unknown Completed [facility] TDAP Unknown Completed [facility] SARS-COV-2 COVID-19 MODERNA 12+ YRS VACCINE Unknown Completed [facility] SARS-COV-2 COVID-19 MODERNA 12+ YRS VACCINE Unknown Completed [facility] TDAP Unknown Completed [facility] SARS-COV-2 COVID-19 MODERNA 12+ YRS VACCINE Unknown Completed [facility] SARS-COV-2 COVID-19 MODERNA 12+ YRS VACCINE Unknown Completed [facility] TDAP Unknown Completed [facility] SARS-COV-2 COVID-19 MODERNA 12+ YRS VACCINE Unknown Completed [facility] SARS-COV-2 COVID-19 MODERNA 12+ YRS VACCINE Unknown Completed [facility] TDAP Unknown Completed [facility] SARS-COV-2 COVID-19 MODERNA 12+ YRS VACCINE Unknown Completed [facility] SARS-COV-2 COVID-19 MODERNA 12+ YRS VACCINE Unknown Completed [facility] TDAP Unknown Completed [facility] SARS-COV-2 COVID-19 MODERNA 12+ YRS VACCINE Unknown Completed [facility] SARS-COV-2 COVID-19 MODERNA 12+ YRS VACCINE Unknown Completed [facility] TDAP Unknown Completed [facility] SARS-COV-2 COVID-19 MODERNA 12+ YRS VACCINE Unknown Completed [facility] SARS-COV-2 COVID-19 MODERNA 12+ YRS VACCINE Unknown Completed [facility] TDAP Unknown Completed [facility] SARS-COV-2 COVID-19 MODERNA 12+ YRS VACCINE Unknown Completed [facility] SARS-COV-2 COVID-19 MODERNA 12+ YRS VACCINE Unknown Completed [facility] TDAP Unknown Completed [facility] SARS-COV-2 COVID-19 MODERNA 12+ YRS VACCINE Unknown Completed [facility] SARS-COV-2 COVID-19 MODERNA 12+ YRS VACCINE Unknown Completed [facility] TDAP Unknown Completed [facility] SARS-COV-2 COVID-19 MODERNA 12+ YRS VACCINE Unknown Completed [facility] SARS-COV-2 COVID-19 MODERNA 12+ YRS VACCINE Unknown Completed [facility] TDAP Unknown Completed [facility] Vital Signs Vital Name Observation Time Observation Value Comments S ource Body Weight 2024-02-11 00:00:00 174.4 [lb_av] [facility] BMI (Body Mass Index) 2024-02-11 00:00:00 30.9 kg/m2 [facility] BP Systolic 2024-02-11 00:00:00 165 mm[Hg] [facility] Height 2024-02-11 00:00:00 63 [in_i] [facility] BP Diastolic 2024-02-11 00:00:00 90 mm[Hg] [facility] BP Systolic 2024-01-22 00:00:00 127 mm[Hg] [facility] BP Diastolic 2024-01-22 00:00:00 77 mm[Hg] [facility] Height 2024-01-22 00:00:00 63 [in_i] [facility] BMI (Body Mass Index) 2024-01-22 00:00:00 29.9 kg/m2 [facility] Body Weight 2024-01-22 00:00:00 169 [lb_av] [facility] BP Diastolic 2024-01-02 00:00:00 70 mm[Hg] [facility] BP Systolic 2024-01-02 00:00:00 130 mm[Hg] [facility] BMI (Body Mass Index) 2024-01-02 00:00:00 29.9 kg/m2 [facility] Body Weight 2024-01-02 00:00:00 169 [lb_av] [facility] Height 2024-01-02 00:00:00 63 [in_i] [facility] Systolic blood pressure 2024-01-01 18:59:00 140 mm[Hg] [facility] Diastolic blood pressure 2024-01-01 18:59:00 83 mm[Hg] [facility] Heart rate 2024-01-01 18:59:00 86 /min [facility] Body temperature 2024-01-01 18:59:00 35.94 Kari [facility] Body height 2024-01-01 18:59:00 160 cm [facility] Body weight 2024-01-01 18:59:00 76.613 [facility] BMI 2024-01-01 18:59:00 29.92 kg/m2 [facility] Oxygen saturation in Arterial blood by Pulse oximetry 2024-01-01 18:59:00 98 /min [facility] Systolic blood pressure 2021-12-22 21:12:00 155 mm[Hg] [facility] Diastolic blood pressure 2021-12-22 21:12:00 92 mm[Hg] [facility] Heart rate 2021-12-22 21:11:00 86 /min [facility] Body temperature 2021-12-22 21:11:00 37.39 Kari [facility] Respiratory rate 2021-12-22 21:11:00 18 /min [facility] Body height 2021-12-22 21:11:00 160 cm [facility] Body weight 2021-12-22 21:11:00 100.426 kg [facility] BMI 2021-12-22 21:11:00 39.22 kg/m2 [facility] Procedures Procedure Date / Time Performed Performing Clinician Source Cystoscopy 2024-01-22 00:00:00 [facility] US, transvaginal 2024-01-04 00:00:00 [facility] US TRANSVAGINAL 2024-01-04 00:00:[address] [facility] [address] ABDOMEN PELVIS W CONTRAST 2024-01-02 20:05:00 Oneyda Palomares [facility] HB CREATININE SERUM/BLOOD FOR IMAGING 2024-01-02 19:57:00 Deann Dumas [facility] Tubal Ligation 1999-09-10 00:00:00 [facility] Cholecystectomy 1989-09-10 00:00:00 [facility] Encounters Start Date/Time End Date/Time Encounter Type Admission Type Attending Clinicians Care Facility Care Department Encounter ID Source 2024-02-11 00:00:00 2024-02-11 00:00:00 AILYN Son: [address], [place] [address] , Ph. [facility] - GC_GCBZW_Bethany lee Brandin* [id number] [facility] 2024-01-29 00:00:00 2024-01-29 00:00:00 Tammy Fonseca MD: [address], [place] [address] , Ph. [facility] GC_GCBZW_Bethany Ghotra* [id number] [facility] 2024-01-22 00:00:00 2024-01-22 00:00:00 Tammy Fonseca MD: [address], [place] [address] , Ph. [facility] - GC_GCBZW_Bethany lee Brandin* [id number] [facility] 2024-01-10 00:00:00 2024-01-10 00:00:00 AILYN Son: [address], [place] [address] , Ph. [facility] - GC_GCBZW_Bethany Ghotra* [id number] [facility] 2024-01-04 00:00:00 2024-01-04 00:00:00 Tammy Fonseca MD: [address], [facility] [address], [place] [address] , Ph. [facility] - GC_GCBZW_La jesus Brandin* [id number] [facility] 2024-01-02 12:47:55 2024-01-02 23:59:00 Outpatient DEANN HANSON [facility] [id number] General acute hospital 2024-01-02 12:47:55 2024-01-02 23:59:00 Hospital Encounter Deann Dumas [facility] [id number] 350.1.13.10 4.2.7.2.686 [id number] General acute hospital 2024-01-02 00:00:00 2024-01-02 00:00:00 Tammy Fonseca MD: [address], [facility] [address], [place] [address] , Ph. 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, [facility] Deann Dumas [facility] [id number] 350.1.13.10 4.2.7.2.686 [id number] General acute hospital 2024-01-01 14:30:00 2024-01-01 14:57:46 Outpatient DEANN HANSON [facility] [id number] General acute hospital 2024-01-01 14:30:00 2024-01-01 14:57:46 Office Visit Deann Dumas [facility] [place] [facility] [id number] 350.1.13.10 4.2.7.2.686 [id number] General acute hospital 2023-11-30 00:00:00 2023-11-30 00:00:00 Outpatient GC_GCBZW_Ka diyala_S PRIV PRIV [id number] [facility] 2023-11-29 00:00:00 2023-11-29 00:00:00 Outpatient GC_GCBZW_Ka diyala_S PRIV PRIV [id number] [facility] 2023-11-28 14:30:00 2023-11-28 14:30:00 Outpatient Janett MARIE GROVER [facility] [id number] General acute hospital 2023-05-09 12:02:29 2023-05-09 12:02:29 Outpatient SFA [facility] [id number] Torin Culp 2022-07-09 00:00:00 2022-07-09 00:00:00 [facility] [id number] 350.1.13.10 4.2.7.2.686 [id number] General acute hospital 2022-03-27 11:54:00 2022-03-27 11:54:00 Outpatient CRISTOBAL_JOE CHOI [facility] [id number] [facility] Program 2022 00:00:00 2022 00:00:00 Cassandra Stephens [facility] [id number] 350.1.13.10 4.2.7.2.686 [id number] General acute hospital 2022-03-14 00:00:00 2022-03-14 00:00:00 Cassandra Stephens [facility] BUILDING [id number] 350.1.13.10 4.2.7.2.686 [id number] General acute hospital 2022-02-24 00:00:00 2022-02-24 00:00:00 Refill RaghavendraabebaYang Nima [facility] 1.84.114 350.1.13.10 4.2.7.2.686 [id number] General acute hospital 2021-12-26 00:00:00 2021-12-26 00:00:00 Telephone Hellen Linda [facility] 1.114 350.1.13.10 4.2.7.2.686 [id number] General acute hospital 2021-12-22 17:00:00 2021-12-22 17:15:00 Music 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 Visit Pob, Ad[facility] Lab Main Hellen [facility] BUILDING 1.84.114 350.1.13.10 4.2.7.2.686 [id number] General acute hospital 2021-12-22 17:00:00 2021-12-22 17:00:00 Outpatient R HELLEN [facility] [id number] General acute hospital 2021-12-22 16:15:00 2021-12-22 16:30:47 [facility] 1.840.114 350.1.13.10 4.2.7.2.686 [id number] General acute hospital 2021-12-22 16:15:00 2021-12-22 16:30:47 Outpatient R HELLEN [facility] [id number] General acute hospital 2021-12-12 00:00:00 2021-12-12 00:00:00 Refill Hellen [facility] DORIS?[facility] 1.84.114 350.1.13.10 4.2.7.2.686 [id number] General acute hospital 2021-09-08 00:00:00 2021-09-08 00:00:00 Refill Hellen Critical access hospital?[facility] 1.2.840.114 350.1.13.10 4.2.7.2.686 [id number] General acute hospital 2021-09-07 09:30:00 2021-09-07 09:30:00 Outpatient R COLTON LOWERY [facility] [id number] General acute hospital 2021-08-28 00:00:00 2021-08-28 00:00:00 Case Management Hellen Critical access hospital?[facility] [id number] 350.1.13.10 4.2.7.2.686 [id number] General acute hospital 2021-08-25 10:30:00 2021-08-25 10:45:00 Music Composer Visit 2, [facility] 1.2.840.114 350.1.13.10 4.2.7.2.686 [id number] General acute hospital 2021-08-25 09:45:00 2021-08-25 10:16:35 Outpatient R HELLEN [facility] [id number] General acute hospital 2021-08-25 09:45:00 2021-08-25 10:16:35 [facility] 1..840.114 350.1.13.10 4.2.7.2.686 [id number] General acute hospital 2021-08-25 09:45:00 2021-08-25 10:16:35 Outpatient R HELLEN [facility] [id number] General acute hospital 2021-08-17 00:00:00 2021-08-17 00:00:00 Refill Yang Sweeney [facility] OFFICE BUILDING ONE [id number] 350.1.13.10 4.2.7.2.686 [id number] General acute hospital 2021-05-25 00:00:00 2021-05-25 00:00:00 Telephone Yang Sweeney [facility] Building 1.2.840.114 350.1.13.10 4.2.7.2.686 [id number] General acute hospital 2021-04-08 09:00:07 2021-04-08 09:37:18 Office Visit Yang [facility] Office Building One 1.2.840.114 350.1.13.10 4.2.7.2.686 [id number] General acute hospital 2021-04-08 07:56:57 2021-04-08 08:12:32 Nurse Visit Nurse, [facility] Hellen [facility] Building 1.2.840.114 350.1.13.10 4.2.7.2.686 [id number] General acute hospital 2021-04-08 08:00:00 2021-04-08 08:00:00 Outpatient R [facility] [id number] General acute hospital 2021-03-18 00:00:00 2021-03-18 00:00:00 Telephone Yang [facility] Office Building One [id number] 350.1.13.10 4.2.7.2.686 [id number] General acute hospital 2021-03-09 00:00:00 2021-03-09 00:00:00 Patient Secure Msg Hellen [facility] BUILDING 1..840.114 350.1.13.10 4.2.7.2.686 [id number] General acute hospital 2021-03-09 00:00:00 2021-03-09 00:00:00 Patient Secure Linda Lopez [facility] Building 1.2.840.114 350.1.13.10 4.2.7.2.686 [id number] 134 [id number] General acute hospital 2021-03-07 15:30:00 2021-03-07 15:30:00 Outpatient R YANG SWEENEY [facility] [id number] General acute hospital 2021-03-07 14:58:25 2021-03-07 15:13:25 Office Visit Yang Sweeney [facility] Office Building One 1.840.114 350.1.13.10 4.2.7.2.686 [id number] 044 [id number] General acute hospital 2021-03-07 00:00:00 2021-03-07 00:00:00 Patient Secure Msg [facility] BUILDING 1.2840.114 350.1.13.10 4.2.7.2.686 [id number] 134 [id number] General acute hospital 2021-03-07 00:00:00 2021-03-07 00:00:00 Telephone Linda Stephens [facility] Building 1.2.840.114 350.1.13.10 4.2.7.2.686 [id number] 134 [id number] General acute hospital 2021-03-07 00:00:00 2021-03-07 00:00:00 Letter (Out) Pcp, Patient Does Not Have A [facility] Office Building One 1.840.114 350.1.13.10 4.2.7.2.686 [id number] 044 [id number] General acute hospital 2021-03-07 00:00:00 2021-03-07 00:00:00 Cassandra Yang [facility] Office Building One 1.840.114 350.1.13.10 4.2.7.2.686 [id number] 044 [id number] General acute hospital 2021-03-03 09:44:35 2021-03-03 10:45:16 Nurse Visit Nurse, [facility] Bakari Garcia [facility] Building 1.840.114 350.1.13.10 4.2.7.2.686 [id number] 134 [id number] General acute hospital 2021-03-03 10:00:00 2021-03-03 10:00:00 Outpatient R [facility] [id number] General acute hospital 2021-03-03 00:00:00 2021-03-03 00:00:00 Letter (Out) Bakari Garcia [facility] 1.840.114 350.1.13.10 4.2.7.2.686 [id number] 134 [id number] General acute hospital 2020-12-15 00:00:00 2020-12-15 00:00:[address] [facility] Office Building One 1.840.114 350.1.13.10 4.2.7.2.686 [id number] 044 [id number] General acute hospital 2020-12-08 00:00:00 2020-12-08 00:00:00 Outpatient R HELLEN [facility] [id number] General acute hospital 2020-12-08 00:00:00 2020-12-08 00:00:00 Telephone Hellen [facility] Building 1..840.114 350.1.13.10 4.2.7.2.686 [id number] 134 [id number] General acute hospital 2020-12-01 10:00:00 2020-12-01 10:00:00 Outpatient R BAKARI GARCIA [facility] [id number] General acute hospital 2020-11-30 00:00:00 2020-11-30 00:00:00 Patient Secure Msg Doctor Unassigned, Owasa [facility] Building 1.2.840.114 350.1.13.10 4.2.7.2.686 [id number] 134 [id number] General acute hospital 2020-11-29 00:00:00 2020-11-29 00:00:00 Case Management Linda Stephens [facility] Building 1.2.840.114 350.1.13.10 4.2.7.2.686 [id number] 134 [id number] General acute hospital 2020-11-29 00:00:00 2020-11-29 00:00:00 Yang Brooks [facility] Office Building One 1.2.840.114 350.1.13.10 4.2.7.2.686 [id number] 044 [id number] General acute hospital 2020-11-29 00:00:00 2020-11-29 00:00:00 Telephone Bakari Garcia [facility] Building 1.2.840.114 350.1.13.10 4.2.7.2.686 [id number] 134 [id number] General acute hospital 2020-11-29 00:00:00 2020-11-29 00:00:00 Patient Secure Msg Doctor Unassigned, Owasa [facility] Building 1.2.840.114 350.1.13.10 4.2.7.2.686 [id number] 134 [id number] General acute hospital 2020-11-25 00:00:00 2020-11-25 00:00:00 Patient Outreach Rickie Alston [facility] 1.840.114 350.1.13.10 4.2.7.2.686 [id number] General acute hospital 2020-11-25 00:00:00 2020-11-25 00:00:[facility] 1.84.114 350.1.13.10 4.2.7.2.686 [id number] 044 [id number] General acute hospital 2020-11-24 16:52:04 2020-11-24 17:07:04 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114 350.1.13.10 4.2.7.2.686 [id number] 044 [id number] General acute hospital 2020-11-23 15:30:00 2020-11-23 15:30:00 Outpatient COLTON ANGELO [facility] [id number] General acute hospital 2020-11-19 08:59:29 2020-11-19 23:59:00 Hospital Encounter Yang Sweeney [facility] 1..114 350.1.13.10 4.2.7.2.686 [id number] General acute hospital 2020-11-19 07:58:09 2020-11-19 08:33:58 Office Visit Yang [facility] Building One 1.114 350.1.13.10 4.2.7.2.686 [id number] 044 [id number] General acute hospital 2020-11-19 08:15:00 2020-11-19 08:15:00 Outpatient R YANG SWEENEY [facility] [id number] General acute hospital 2020-11-19 00:00:00 2020-11-19 00:00:00 Orders Only Doctor Unassigned, Owasa [facility] 1..114 350.1.13.10 4.2.7.2.686 [id number] [id number] General acute hospital 2020-06-23 00:00:00 2020-06-23 00:00:00 Refill Yang [facility] Office Building One 1.114 350.1.13.10 4.2.7.2.686 [id number] 044 [id number] General acute hospital 2020-05-19 00:00:00 2020-05-19 00:00:00 Refill Yang [facility] Building One 1.114 350.1.13.10 4.2.7.2.686 [id number] 044 [id number] General acute hospital 2020-05-14 00:00:00 2020-05-14 00:00:[address] 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686 [id number] [id number] General acute hospital 2019-09-25 08:34:23 2019-09-25 11:00:04 Office Visit Yang [facility] Office Building One 1.114 350.1.13.10 4.2.7.2.686 [id number] 044 [id number] General acute hospital 2019-07-18 00:00:00 2019-07-18 00:00:00 Orders Only Doctor Unassigned, Owasa [facility] 1.2840.114 350.1.13.10 4.2.7.2.686 [id number] General acute hospital 2019-05-27 09:29:40 2019-05-30 07:57:19 Office [facility] One 1.2840.114 350.1.13.10 4.2.7.2.686 [id number] 044 [id number] General acute hospital 2019-02-04 06:44:00 2019-02-04 06:44:00 Outpatient TURNER_FA [facility] [id number] [place] [facility] Results Test Description Test Time Test Comments Results Result Co mments Source [facility]stick[facility] panel - Rmkeo0683-13-44 09:02:20* Test Item Value Reference Range Interpretation Comme nts Leukocytes (test code = Leukocytes) 1+ Nitrite (test code = Nitrite) negative Urobilinogen (test code = Urobilinogen) Normal Protein (test code = Protein) Negative pH (test code = pH) 6.0 Blood (test code = Blood) Negative Specific [place] (test code = Specific [place]) 1.015 Ketone (test code = Ketone) Negative Bilirubin (test code = Bilirubin) Negative Glucose (test code = Glucose) Negative Appearance (test code = Appearance) Clear Color (test code = Color) Yellow [facility] HospitalPOCT [id number] 20:52:24* Test Item Value Reference Range Interpretation Comme nts POCT Creatinine (test code = 3867816063) 0.5 mg/dL 0.5-1.1 Lab Interpretation (test cod e = 59371-4) [facility] EJBNXBAF1960-16-57 20:25:43CT Abdomen and Pelvis with oral as well as intravenous contrast. CLINICAL HISTORY: Possible incisional hernia. DOSE: Up-to-date CT equipment and radiation dose reduction techniques wereemployed. CTDIvol: ?10.63 mGy. DLP: 557.58 ?mGy-cm. TECHNIQUE : Contiguous axial imaging from the level of the lung basesthrough the pubic symphysis were performed after the uncomplicatedadministration of nonionic contrast material. ?Coronal and sagittalreconstructions were obtained. Auto mA and/or iterative reconstruction wereused to reduce radiation dose. FINDINGS: ? Lower lungs: Clear. No pleural effusion orpericardial effusion. Nodefinite evidence of hiatal hernia. Liver, Gallbladder and Spleen: Liver is14.4 cm in length and showed nofocal enhancing lesions. Gallbladder has been removed. Spleen is of normalsize. Mild dilatation of the central intrahepatic as well as extrahepaticbile ducts could be co mbination of patient's age and prior cholecystectomy.Pancreatic duct is not dilated. Peritoneum: ?No free air or free fluid. No lymphadenopathy. Pancreas and Adrenals: ?Unremarkable pancreas and adrenal glands. Kidneys and Ureters: ?No visible calculi in the renal collecting systems. No hydroureteror hydronephrosis. Vessels: Moderate atherosclerosis in the aorta and iliac arteries withoutaortic aneurysm. Retroperitoneum: No abnormal fluid or lymphadenopathy. Bowel: ?Orally administered contrast medium noted in small bowel as well asup to splenic flexure of the large bowel. Small bowel gas pat tern appearsnormal. Normal appendix is visualized. Retained fecal material and airnoted throughout large bowel. Bladder and Reproductive Organs: ?Unremarkable, underdistended Opacified urinary bladder. No uterine or adnexal pathology except for smallfollicles in both ovaries. Bones: ?Grade 1 spondylolisthesis at L4-L5 with hypertrophic facetarthritis. No aggressive bone lesions or any compressiondeformity in thelower thoracic or lumbar vertebral bodies. Soft tissues: Fat-containing left sided indirect inguinal hernia withoutany complications. A very small 1 cm size fat-containing hernia noted inthe right anterior abdominal wall, probably at the site of laparoscopicport insertion. There is probably a very small fat-containing umbilicalhernia without any complications. CONCLUSION:1. No acute intra-abdominal or pelvic abnormalities detected.2. Fat-containing indirect type left inguinal hernia, very smallfat- containing umbilical hernia and right anterior abdominal wall herniasuspected the procedure. Port insertion site without any complications.3. S/P cholecystectomy.[facility] Notes Date/Time Note Provider Source 2024-01-01 15:00:00 [id number]:00:00F ormatting of this note might be different from the original.Called for patient at waiting area, no answer. 23540-1Awavs IidkWX8454-95-01Q63:06:23Nurse NoteTXT1.2.840.733848.1.13.104.2.7 .2.650362|[id number] for patient qsug48644-3Xtlws NoteLNNARRATIVEFormatted C-CDA narrative [id number] [id number] 33NTXWBYEMETQOBMMCJGECIS8146-78-47 T15:06:231.2.840.616948.1.72.3.15| 1.2.840.271991.1.13.104.2.7.2.7278 [id number] [facility] 2024-[facility]-01 15:00:00 8792-25-19S72:00:00F ormatting of this note might be different from the original.Called pt from waiting area no answer. 28613-3Dzzsb IibsSF6407-99-13F74:21:20Nurse NoteTXT1.2.840.235654.1.13.104.2.7 .2.977931|[id number] for patient ivhc97729-8Zjmda NoteLNNARRATIVEFormatted C-CDA narrative [id number] A Cooper[address][id number] 61XSBNFGXXSISSNDPYGECDML9673-24-97 T15:21:201.2.840.201834.1.72.3.15| 1.2.840.251687.1.13.104.2.7.2.7278 [id number] Sudha Mayers [facility] 2024-01-01 15:00:00 2527-20-87P92:00:00F ormatting of this note is different from the original.Images from the original note were not included.Venipuncture collection performed by clean technique on the left anticubitus. Total of 1 attempts were made. Slight pressure and a bandage/dressing were applied to the site(s). The patient experienced no complications. The following specimens were processed according to instructions and sent to [facility] laboratories per lab order on 01/01/24:LT BLUE2 SST1 RED2 LAVPPT1 DK GREEN (LiHep)DK GREEN (SodH)GRAYDK BLUE (K2)DK BLUE (S)ACDBlood CultureNIPT/NTD 59945-9Rpjjs YoetGM1414-11-24R17:24:35Nurse NoteTXT1.2.840.679408.1.13.104.2.7 .2.963131|[id number] for patient uikg49575-5Mtahz NoteLNNARRATIVEFormatted C-CDA narrative text[address] Mm[id number] 82RATTHCLTINFXYMZVDWQEDT5852-31-24 T15:24:351.2.840.368221.1.72.3.15| 1.2.840.462720.1.13.104.2.7.2.7278 [id number] [facility] 2024-01-01 14:30:00 8087-15-32Q71:30:00A ddended by: ONEYDA PALOMARES on: 01/01/2024 02:50 PMModules accepted: Orders 73062-2Uppzexiy EvponuquCN6215-50-86E42:50:05Adden dum DocumentTXT1.2.840.903511.1.13.104 .2.7.2.414374|[id number] e for patient yoyl27652-5VwqxDNEPTFOCTOFYiohvlla d C-CDA narrative text[address]TXTX77555775 37DTPEHBASOCMEIYKQBWPFVS3916-81-82 T14:50:051.2.840.891049.1.72.3.15| 1.2.840.880007.1.13.104.2.7.2.7278 [id number] [facility] 2024-01-01 14:30:00 2689-39-16X62:30:00A ddended by: ONEYDA PALOMARES on: 01/01/2024 02:56 PMModules accepted: Orders 44078-1Owgbmcll PogwjhnsJL1679-69-39V28:56:19Adden dum DocumentTXT1.2.840.177527.1.13.104 .2.7.2.181735|[id number] e for patient ytvu28551-3VnfdINEYKGDWFDCBbquqyko d C-CDA narrative text[address] StreetTXTX77555775 14DFJDUHVZEEHWKBGZUNJQNH0460-36-95 T14:56:191.2.840.363717.1.72.3.15| 1.2.840.892187.1.13.104.2.7.2.7278 [id number] [facility]"
[2024-02-21] MEDS: HYDROCODONE/APAP 5/325 MG TAB PO PRN (17:00)
[2024-02-21 17:01] VITALS: BMI 30.6
[2024-02-21] MEDS: IBUPROFEN 600 MG TAB PO PRN (21:16)
[2024-02-21] MEDS: Ringers Lactate 1,000 ML IV SCH (23:00)
[2024-02-22] MEDS: LEVOTHYROXINE SOD 0.025 MG TAB PO SCH (05:32)
--- NOTE | 2024-02-22 05:47 | OP ---
Date of Procedure: 02/21/2024 Surgeon: Tammy [facility]onseca [facility] Licensed Practical Nurse: Yvonne Echols. Preoperative Diagnoses: Deep dyspareunia, incomplete uterovaginal prolapse, and stress urinary incon tinence. Postoperative Diagnoses: Deep dyspareunia, incomplete uterovaginal prolapse, stress urinary incontin ence, Enterocele, and a significant perineocele. Procedures Performed: 1.Total laparoscopic hysterectomy, bilateral salpingo-oophorectomy. 2.Uterosacral ligament suspension colpopexy, that was done laparoscopically. 3.Modified Evangelista culdoplasty for enterocele repair, posterior enterocele repair. 4.Vaginal posterior wall repair and vaginal perineocele repair. 5.Transobturator mid urethral sling. 6.Cystoscopy. Anesthesia: General endotracheal. Estimated Blood Loss: 100. Specimens: Uterus, bilateral tubes and ovaries. Urine Output: 200. Fluids: 1800. Findings: POP-Q 0, 0+, 1, 6, 10, 9, 0+, 1, -4. Cysto showed both ureteric orifices with good efflux of urine. No foreign body or trauma to the bladder. Uterosacral ligament suspension was performed with a 0 PDS suture on the lateral-most stitch and then and the culdoplasty was performed with a 0 PD S suture on the uterosacral as well as the posterior wall closing the peritoneum for an enterocele re pair, 1 stitch on each side. The vaginal cuff was closed with interrupted 0 PDS sutures, 2 angle sim ple sutures, and 3 [id number] in the middle. Perineocele repair was all douglas tissue and post erior wall repair as well. The genital hiatus was made sure that it was at least very freely 3 finge rbreadths wide and the sling was placed in the usual fashion. Complications: No complications. Drains: Batista catheter and vaginal packing. Implants: TVT-O. Disposition: Transferred to the recovery room in stable condition. Indications: The patient is a 53-year-old female who presented with dyspareunia, referred from Juan Dang, nurse practitioner, in [place]. Endometrium was 5 mm sampled. No abnormality consist ent with infection atypia or malignancy. She had a full evaluation for her prolapse, overactive blad priscilla, stress urinary incontinence. She is diabetic, hypothyroid, and hypertensive. All the medical p roblems were optimized. She has too heavy days of her period and mostly sara well with it. The dys pareunia is fairly new and she was bothered by. On cystoscopy mostly unremarkable other than trabecu lations that were grade 2. So after the full evaluation, discussed about the options of preservation of the uterus and fixation of the prolapse or removal of the uterus with the same. I preferred to d o a douglas tissue prolapse repair, especially avoid a sacral colpopexy because the patient also has h istory of dyspareunia and there is a possibility that she needs endometriosis excision or extensive e ndometriosis excision and even without endometriosis placing a graft material as a first repair. It could be very beneficial for minimal recurrence of prolapse, but the sexual dysfunction or dyspareuni a could be a risk and the patient preferred to proceed with uterosacral ligament suspension colpopexy . Ureteric injury, bleeding, infection, injury to the bowel or bladder were all reviewed. Worsening of dyspareunia, pelvic pain, menopause, and its associated syndrome were all reviewed with the patie nt including the rare complications like fistula and she was consented. She also understood that her overactive bladder would not be improved by doing the procedures that we do, but this will be re-evaluated once all the prolapse has been repaired and then it can be address ed and treated subsequent to her full recovery of treatments. Description Of Procedure: After informed consent was re-verified in the preoperative area, she was t aken back to the OR, placed in supine fashion on the table. General anesthesia was given. She was p laced in a dorsal lithotomy position using Vernon stirrups. Vulva, vagina, and perineum were prepped and draped in a sterile fashion. Batista was placed to drain the bladder. Speculum placed to expose t he cervix. Anterior lip grasped with 2 Allis clamps, dilated to 16-Mozambican and a large cup uterine ma nipulator was introduced and fixed in place. Batista was placed to drain the bladder as dictated and a ttached to a drainage bag and left to gravity. This area was then draped. A 1 cm infraumbilical incision made via a scalpel after injecting a 0.25% Marcaine. Fascia was incis ed, tagged with 0 Vicryl sutures, peritoneum entered sharply. After Figueroa was introduced and after adequate insufflation, site of entry was checked. There were omental adhesions on the anterior abdom inal wall above the level of the umbilicus, but nothing below. The patient was placed in Trendelenbu rg. A 10 mm suprapubic and two 5 mm right and left lower quadrant ports were placed under direct vis ion. Once the patient was placed in optimal Trendelenburg, both the ureters were traced from the pel hung brim to the ureteric tunnel. Uterosacral ligaments were identified and sutured with 3-0 Monocryl sutures at least 5 cm away from the insertion so that the distance between the ureter and the uteros acral were at least 3 to 4 cm. Once this was performed, then started with the hysterectomy. TLH BSO: Using the LigaSure, the mesosalpinx was opened up. The IP ligament was taken down with the help of the LigaSure. The tube and the mesosalpinx all were taken down to the level of the round li gament. The round ligament was taken down. Broad ligament opened. Anterior peritoneum taken to ope n the bladder flap. Then posteriorly taken down to the level of the posterior part of the cup. The ureter on the left side was dissected and significantly dissected lateral to the uterosacral so that when I am doing the uterosacral suspension, that the risk of kinking would be minimal. The vessels were then isolated and taken at the level of the internal os and the cardinal ligament wa s cauterized and cut. Then on the opposite side, did similar dissection for the tube, ovary, round l igament, broad ligament, vessels, and cardinal ligaments. Then, the bladder on the anterior wall was dissected sharply off without entering into the vesicovaginal space and staying above the level of i t, so I could have thick anterior wall. Once the bladder was dissected, at least 3 cm below the leve l of the colpotomy, then I proceeded to the colpotomy. Monopolar hook blade was used to perform a colpotomy in a circumferential fashion. Specimen removed through the vagina, intact with the ovaries and tubes. After the specimen was removed, there was excellent hemostasis on the cuff. Cuff was closed with sim ple 0 PDS sutures at both angles and 3 [id number] in the middle. Uterosacral colpopexy: The sutures on the cuff that were used for retraction for the bladder, dissec tion was performed as of the anterior wall was cleared. Then, using the retraction of the 3-0 Monocr yl on both uterosacral ligaments and 0 PDS suture was taken, 1 on each side from lateral to medial an d then medial to lateral going through the anterior and posterior vaginal wall connective tissues, ti ed down, 1 on each side. Then, another suture was taken through the uterosacral ligament, posterior vaginal wall, plicating the peritoneum, first on the left side, then on the right side below the leve l of the first suture. There was excellent peristalsis of both ureters. No evidence of any trauma to the bladder or the ure ters laparoscopically. I ended my case here as the vaginal exam showed excellent suspension. Cystoscopy was performed after removing the Batista with 30-degree lens normal saline and a 17-Mozambican s luis and excellent jets of urine from both ureteric orifices promptly. No evidence of any trauma to the bladder. The bladder was then drained with the Batista and I close the incisions. Umbilical incision closed, the tagged 0 Vicryl sutures tied to each other, and all gas desufflated an d the ports removed. Suprapubic site was closed with a deep stitch and all skin incisions were close d with interrupted 4-0 Monocryl. The vaginal procedure was started with posterior repair. The posterior wall and the perineocele were all evaluated according to POP-Q. Then, the Seligman retractor was placed and Batista was retracted superiorly after clamping. The hymenal areas were picked up with 2 Allis clamps. Then, a large a di amond-shaped incision was made on the perineum itself from the vestibule down to the peritoneum and t he epithelium excised. The underlying perineal body structures were all , creating a large perineocele here with perineal descent. So, the lateral perineal body structures were identified and held with Allis clamps. Then, the poste rior compartment was opened up. Posterior compartment repair: The vaginal epithelium was deepithelialized and then dissection was pe rformed to get into the upper portion of the posterior wall. Once this was done, there was not an en terocele left as this was corrected with the culdoplasty, so I was satisfied with doing site-specific posterior wall defect repair with a continuous running 2-0 PDS suture, then followed by a 2-0 Vicryl suture, reattaching the perineal body to the posterior rectovaginal septum. Perineal perineocele repair: The perineocele was repaired in multiple layers. The external sphincte r was repaired followed by the perineal body structures. The areas of the ischial rectal fossa were also very lax and not attached to the perineal body creating the perineocele. Once the perineum was reconstructed fully and the posterior wall was reattached here with 2-0 Vicryl, then the vaginal epithelium was slightly trimmed and closed with the help of 2-0 Vicryl in a continu ous running fashion and perineum closed with 2-0 Vicryl and 3-0 Vicryl. Rectal exam was negative for any trauma are sutures here. Sling: Mid urethral area was picked up with 2 Allis clamps, injected with dilute vasopressin. A 1.5 cm incision made in the mid urethra and dissection was conducted under the fascial plane creating 2 tunnels toward the internal obturator internus muscle. Once the membrane was perforated, the track w as widened. The scissors were pulled out on both sides. Then, the kit was opened. The wing guide w as then introduced along the same channel and plastic dilator was passed with a needle hugging the in ferior pubic ramus exiting lateral to the groin fold below the level of the adductor longus tendon an d the plastic dilator was held with 2 Marisol clamps, 1 on each side once both passes were placed in a similar fashion without buttonholing the vagina. The plastic sheath and mesh were cut after the dila tors were removed and the sling was tensioned appropriately using the Metzenbaum scissors in the midl ine. Then antibiotic solution was used for irrigation. Once the sling was satisfactorily laid flat, the vaginal epithelium was closed with the help of interrupted 3-0 Vicryl in a continuous running fa shion. Batista was removed cystoscopy was repeated. No evidence of mesh in the bladder. Careful exam ination on both sides of the internal meatus were done and confirmed. The bladder was drained with F oley and vaginal packing was placed. She was recovered from anesthesia and taken to PACU in stable c ondition and her daughter was deeply thanking. She will follow up on the postop floor for voiding tr ials and then in the office as per appointment. KYLE/LETY Voice ID: [id number] Report ID: [id number]
[2024-02-22] MEDS: LOSARTAN POTASSIUM 50 MG TABLET PO SCH (08:21)
[2024-02-22 09:57] VITALS: O2SAT 94
[2024-02-22 12:51] VITALS: BP 147/81; TEMP 97.1
== END 2024-02-22 13:49 | disposition home or self-care (01) ==
LOC: OR 07:38 → 2ND 14:21
PROVIDERS: ADMIT Obstetrics & Gynecology; ATTEND Obstetrics & Gynecology
PROC: 0UT24ZZ Resection of Bilateral Ovaries, Percutaneous Endoscopic Approach (ICD-10-PCS; 2024-02-21)
PROC: 0UT74ZZ Resection of Bilateral Fallopian Tubes, Percutaneous Endoscopic Approach (ICD-10-PCS; 2024-02-21)
PROC: 0USG4ZZ Reposition Vagina, Percutaneous Endoscopic Approach (ICD-10-PCS; 2024-02-21)
PROC: 0JQC0ZZ Repair Pelvic Region Subcutaneous Tissue and Fascia, Open Approach (ICD-10-PCS; 2024-02-21)
PROC: 0TSD0ZZ Reposition Urethra, Open Approach (ICD-10-PCS; 2024-02-21)
PROC: 0UT94ZZ Resection of Uterus, Percutaneous Endoscopic Approach (ICD-10-PCS; principal; 2024-02-21 09:00)
DX: N94.12 Deep dyspareunia (principal); N39.3 Stress incontinence (female) (male); N81.2 Incomplete uterovaginal prolapse; N83.8 Other noninflammatory disorders of ovary, fallopian tube and broad ligament; N88.8 Other specified noninflammatory disorders of cervix uteri
CPT/HCPCS: 93005; 85025; 80048; 36415; 86900; 86850; 81025; 85610; 86901; 82947; 88305; 85730; 81003; 94010; 58571; 57283; 57250; 57288; A4216; J2704; J2001; J2250; J3010; J1100; J1170 ×3; J2405; G0378 ×3; J7120 ×3; G0379; 88307